=== PATIENT | female | born 1940 | race Caucasian/White ===

== ENCOUNTER → 2017-08-29 | Outpatient (CLI) | payer MEDICARE, OTHER ==
[~2017-08-29] MED LIST: ASPI81CH; Antivert12.5 MG PO; CELE200; CHOL10002; DIPATR PO; FOLI400; HYDSUL200; LEVSOD100 PO; LEVSOD150; METTREX2.5; MINERAL; NIAC500ER; OMEP20ER; Pred Forte1 ML RIGHTEYE; RALO60; SULF500; TELM80; VITAMIN; Valium5 MG PO
[2017-09-01 13:48] LABS: Stool Occult Blood Guaiac 1 Neg (Neg); Stool Occult Blood Guaiac 2 Neg (Neg)
[2017-09-01 13:49] LABS: Stool Occult Blood Guaiac 3 Neg (Neg)
== END | disposition home or self-care (01) ==
LOC: LAB SHORT 11:00 → LAB 11:00 → LAB FUT 08-25 11:25
PROVIDERS: Internal Medicine
DX: D64.9 Anemia, unspecified (principal)
CPT/HCPCS: 82272; 82274

== ENCOUNTER → 2019-04-01 | Outpatient (CLI) | payer MEDICARE, OTHER ==
[2019-04-03 14:09] LABS: Stool Occult Blood Guaiac 1 Neg (Neg)
[2019-04-03 14:10] LABS: Stool Occult Blood Guaiac 2 Neg (Neg); Stool Occult Blood Guaiac 3 Neg (Neg)
== END | disposition home or self-care (01) ==
LOC: LAB 07:09 → LAB SHORT 07:09 → LAB FUT 02-07 07:15
PROVIDERS: Internal Medicine
DX: D64.9 Anemia, unspecified (principal)
CPT/HCPCS: 82270

== ENCOUNTER 2021-05-08 19:02 | Inpatient (IN) | payer MEDICARE, OTHER ==
[~2021-05-08] VITALS: Ht 152.4 cm; Wt 63.4 kg
[~2021-05-08 19:02] MED LIST changes: -EUTHYROX125 MCG PO; -METHOTREXATE2.5 M1 PO; -NIAC500ER PO; -SYNTHROID125 MC1 PO; -TELMISARTAN80 MG PO
[2021-05-08 19:49] LABS: BASOPHILS ABSOLUTE AUTO 0.06 K/mm3 (0.00-0.23); BASOPHILS PERCENT AUTO 0 % (0-2); EOSINOPHILS PERCENT AUTO 0 % (0-6); IMMATURE GRAN ABSOLUTE AUTO 0.05 K/mm3 (0.00-0.10); IMMATURE GRAN PERCENT AUTO 0 % (0-1); LYMPHOCYTES ABSOLUTE AUTO 1.65 K/mm3 (0.84-5.20); LYMPHOCYTES PERCENT AUTO 11 % (21-46); MONOCYTES ABSOLUTE AUTO 0.67 K/mm3 (0.16-1.47); MONOCYTES PERCENT AUTO 4 % (4-13); Mean Corpuscular HGB Conc 32.6 g/dL (31.5-36.5); Mean Corpuscular Volume 86 fL (80-100); Mean Platelet Volume 10.9 fL (9.1-12.4); NEUTROPHILS ABSOLUTE AUTO 12.95 K/mm3 (1.96-9.15); NEUTROPHILS PERCENT AUTO 84 % (41-73); Platelet Count 247 K/mm3 (150-400); RDW Coefficient Variation 15.4 % (11.7-14.2); RDW Standard Deviation 46.6 fL (35.1-46.3); Red Blood Cell Count 5.36 M/mm3 (3.80-5.20); White Blood Cell Count 15.38 K/mm3 (4.00-11.30)
[2021-05-08 20:05] LABS: Alanine Aminotransfer (ALT/SGP 25 U/L (12-78); Albumin, Blood 3.8 g/dL (3.4-5.0); Alk Phos 75 U/L (50-136); Anion Gap 8 mmol/L (6-16); Aspartate Aminotrans (AST/SGOT 25 U/L (12-37); Bilirubin, Total 0.7 mg/dL (0.1-1.0); Blood Urea Nitrogen 12 mg/dL (8-24); Bun/Creatinine Ratio 17.9 (12.0-20.0); CO2, Blood 23 mmol/L (21-32); Calcium, Blood 9.8 mg/dL (8.5-10.1); Chloride, Blood 100 mmol/L (98-108); Creatinine, Blood 0.67 mg/dL (0.40-1.00); Globulin, Blood 3.9 g/dL (2.2-4.0); Glomerular Filtration Rate >60 (60-); Glucose, Blood 140 mg/dL (70-99); Potassium, Blood 4.2 mmol/L (3.5-5.5); Sodium, Blood 131 mmol/L (136-145); Total Protein, Blood 7.7 g/dL (6.4-8.2)
[2021-05-08] MEDS ORDERED: METHOTREXATE2.5 M1 PO (21:40)
[2021-05-08] MEDS ORDERED: SYNTHROID125 MC1 PO (21:40)
[2021-05-08] MEDS ORDERED: TELMISARTAN80 MG PO (21:40)
[2021-05-08] MEDS ORDERED: HYDSUL200 PO (21:49)
[2021-05-08] MEDS ORDERED: EUTHYROX125 MCG PO (21:50)
[2021-05-08] MEDS ORDERED: NIAC500ER PO (21:50)
[2021-05-08 23:19] LABS: International Normalized Ratio 1.05; Prothrombin Time Results 11.3 Sec (9.7-11.5)
[2021-05-08 23:22] LABS: SARS-Cov-2 (COVID-19) PCR, MMC NEGATIVE (NEGATIVE)
[2021-05-08 23:26] LABS: Phosphorus, Blood 4.2 mg/dL (2.5-4.9); Thyroid Stimulating Hormone 0.916 uIU/mL (0.360-4.800)
--- NOTE | 2021-05-09 04:42 | NUR ---
END OF SHIFT REPORT: PT WAKES UP CONFUSED, NOT KNOWING WHERE SHE IS. ATTEMPTING TO GET OUT OF BED WITHOUT HELP. NON VIOLENT RESTRAINTS ORDER OBTAINED AND INITIATED. PT GIVEN SOME SWABS TO HELP WITH MOUTH DRYNESS. NG TUBE INTACT AND CONNECTED TO LOW INTERMITENT SUCTION. APPROXIMATELY 50ML OF GREEN OUTPUT AT THIS TIME. PT STABLE IS IS RESTING COMFORTABLY.
[2021-05-09 05:41] LABS: BASOPHILS ABSOLUTE AUTO 0.04 K/mm3 (0.00-0.23); BASOPHILS PERCENT AUTO 0 % (0-2); EOSINOPHILS ABSOLUTE AUTO 0.07 K/mm3 (0.00-0.68); EOSINOPHILS PERCENT AUTO 1 % (0-6); Hematocrit 39.7 % (33.0-51.0); Hemoglobin 12.6 g/dL (11.5-16.0); IMMATURE GRAN ABSOLUTE AUTO 0.02 K/mm3 (0.00-0.10); IMMATURE GRAN PERCENT AUTO 0 % (0-1); LYMPHOCYTES ABSOLUTE AUTO 2.61 K/mm3 (0.84-5.20); LYMPHOCYTES PERCENT AUTO 26 % (21-46); MONOCYTES ABSOLUTE AUTO 0.98 K/mm3 (0.16-1.47); MONOCYTES PERCENT AUTO 10 % (4-13); Mean Corpuscular HGB 27.5 pg (26.0-34.0); Mean Corpuscular HGB Conc 31.7 g/dL (31.5-36.5); Mean Corpuscular Volume 87 fL (80-100); Mean Platelet Volume 11.4 fL (9.1-12.4); NEUTROPHILS ABSOLUTE AUTO 6.21 K/mm3 (1.96-9.15); NEUTROPHILS PERCENT AUTO 63 % (41-73); Platelet Count 171 K/mm3 (150-400); RDW Coefficient Variation 15.3 % (11.7-14.2); RDW Standard Deviation 47.5 fL (35.1-46.3); Red Blood Cell Count 4.58 M/mm3 (3.80-5.20); White Blood Cell Count 9.93 K/mm3 (4.00-11.30)
--- NOTE | 2021-05-09 06:03 | NUR ---
0520: PT CALLS NEEDING TO USE THE RESTROOM. NURSE PLEASURE CRAFT SAILOR REPORTS THAT PT PULLED OUT NG TUBE. THIS NURSE ASSES PT AND PT IS STABLE AND REPORTING NO SIGNS OF NAUSEA NOR ABD PAIN. PT HAS HAD TWO SMALL BOWEL MOVEMENTS OVER NIGHT. HOSPITALIST NOTIFIED. LEAVE NG TUBE OUT FOR NOW AND LEAVE PT NPO, PER HOSPITALIST.
[2021-05-09 06:09] LABS: Alanine Aminotransfer (ALT/SGP 18 U/L (12-78); Albumin, Blood 2.8 g/dL (3.4-5.0); Albumin/Globulin Ratio 0.9 (0.8-1.8); Alk Phos 50 U/L (50-136); Anion Gap 6 mmol/L (6-16); Aspartate Aminotrans (AST/SGOT 18 U/L (12-37); Bilirubin, Total 0.4 mg/dL (0.1-1.0); Blood Urea Nitrogen 10 mg/dL (8-24); Bun/Creatinine Ratio 16.2 (12.0-20.0); CO2, Blood 24 mmol/L (21-32); Chloride, Blood 109 mmol/L (98-108); Creatinine, Blood 0.62 mg/dL (0.40-1.00); Globulin, Blood 3.1 g/dL (2.2-4.0); Glomerular Filtration Rate >60 (60-); Glucose, Blood 96 mg/dL (70-99); Potassium, Blood 3.7 mmol/L (3.5-5.5); Sodium, Blood 139 mmol/L (136-145); Total Protein, Blood 5.9 g/dL (6.4-8.2)
[2021-05-09 06:12] LABS: Calcium, Blood 7.2 mg/dL (8.5-10.1)
--- NOTE | 2021-05-09 18:17 | NUR ---
SHIFT SUMMMARY PT IS AO AND PLEASANT. PT UPGRADED TO CLEAR LIQUID DIET TODAY AND IS TOLERATING IT WELL. PT DENIES PAIN, N/V, SOB. PT IS ONE ASSIST TO BCC. NO PROCEDURES DONE THIS SHIFT. PT IS IN BED, CALL LIGHT IN REACH, LOW POSITION.
--- NOTE | 2021-05-10 03:56 | NUR ---
END OF SHIF REPORT: PT REPORTS NO NAUSEA NOR PAIN OVERNIGHT. NO EPISODES OF CONFUSION OVERNIGHT. PT RESTING COMFORTABLY AT THIS TIME.
[2021-05-10 05:27] LABS: Hematocrit 36.9 % (33.0-51.0); Hemoglobin 11.6 g/dL (11.5-16.0); Mean Corpuscular HGB 28.1 pg (26.0-34.0); Mean Corpuscular HGB Conc 31.4 g/dL (31.5-36.5); Mean Corpuscular Volume 89 fL (80-100); Mean Platelet Volume 11.6 fL (9.1-12.4); Platelet Count 144 K/mm3 (150-400); RDW Coefficient Variation 15.2 % (11.7-14.2); RDW Standard Deviation 49.4 fL (35.1-46.3); Red Blood Cell Count 4.13 M/mm3 (3.80-5.20); White Blood Cell Count 6.83 K/mm3 (4.00-11.30)
[2021-05-10 05:55] LABS: Anion Gap 3 mmol/L (6-16); Blood Urea Nitrogen 4 mg/dL (8-24); Bun/Creatinine Ratio 7.7 (12.0-20.0); CO2, Blood 26 mmol/L (21-32); Calcium, Blood 7.6 mg/dL (8.5-10.1); Chloride, Blood 111 mmol/L (98-108); Creatinine, Blood 0.52 mg/dL (0.40-1.00); Glomerular Filtration Rate >60 (60-); Glucose, Blood 92 mg/dL (70-99); Potassium, Blood 3.2 mmol/L (3.5-5.5); Sodium, Blood 140 mmol/L (136-145)
[2021-05-10 06:27] LABS: BASOPHILS PERCENT MAN 0 % (0-2); EOSINOPHILS ABSOLUTE MAN 0.27 K/mm3 (0.00-0.68); EOSINOPHILS PERCENT MAN 4 % (0-6); LYMPHOCYTES ABSOLUTE MAN 1.77 K/mm3 (0.84-5.20); LYMPHOCYTES PERCENT MAN 26 % (21-46); MONOCYTES ABSOLUTE MAN 0.81 K/mm3 (0.16-1.47); MONOCYTES PERCENT MAN 12 % (4-13); NEUTROPHILS ABSOLUTE MAN 3.96 K/mm3 (1.96-9.15); SEG NEUTROPHILS PERCENT MAN 58 % (41-73); TOTAL CELLS COUNTED 100
--- NOTE | 2021-05-10 13:35 | NUR ---
DISCHARGE NOTE PT IS AOX4. IV REMOVED PER DOCUMENTATION. THIS RN REVIEWED DC INSTRUCTIONS AND MEDICATIONS WITH PT WHO VERBALIZED UNDERSTANDING. PT DRESSED SELF IN HOME CLOTHING. BELONGINGS GATHERED FROM ROOM. PT ASSISTED INTO WHEELCHAIR AND LEFT TO PRIVATE VEHICLE WITH BELONGINGS PRESENT.
== END 2021-05-10 13:35 | disposition home or self-care (01) | DRG 390 ==
LOC: ER 19:02 → MEDS 22:45
PROVIDERS: Nurse Practitioner Acute Care; Physician Assistant; Surgery; ADMIT Hospitalist
DX: K56.609 Unspecified intestinal obstruction, unspecified as to partial versus complete obstruction (principal); Z20.822 Contact with and (suspected) exposure to COVID-19; K21.9 Gastro-esophageal reflux disease without esophagitis; M06.9 Rheumatoid arthritis, unspecified; E03.9 Hypothyroidism, unspecified; I10 Essential (primary) hypertension; M81.0 Age-related osteoporosis without current pathological fracture; D72.829 Elevated white blood cell count, unspecified; Z88.0 Allergy status to penicillin; Z88.8 Allergy status to other drugs, medicaments and biological substances; Z91.018 Allergy to other foods; Z79.82 Long term (current) use of aspirin; Z79.52 Long term (current) use of systemic steroids; Z79.899 Other long term (current) drug therapy; Z87.891 Personal history of nicotine dependence; Z90.710 Acquired absence of both cervix and uterus
CPT/HCPCS: 36415; 74019; 80048; 80053; 82150; 83605; 84100; 84145; 84443; 85007; 85025; 85027; 85610; 85730; 86850; 86900; 86901; 96361; 96374; 99284-25; A9270; J1644; J2405; J7030; J7042; U0004

== ENCOUNTER → 2021-05-08 | Outpatient (CLI) | payer MEDICARE, OTHER ==
[~2021-05-08] MED LIST changes: -CHOL10002; +EUTHYROX125 MCG PO; +FOLI1 PO; -FOLI400; -HYDSUL200; +HYDSUL200 PO; +METHOTREXATE2.5 M1 PO; +NIAC500ER PO; -OMEP20ER; +OMEP20ER PO; +SYNTHROID125 MC1 PO; +TELMISARTAN80 MG PO; +VITAMIN D31000 UNI1 PO
[2021-05-08 15:25] LABS: BASOPHILS ABSOLUTE AUTO 0.08 K/mm3 (0.00-0.23); BASOPHILS PERCENT AUTO 1 % (0-2); EOSINOPHILS ABSOLUTE AUTO 0.02 K/mm3 (0.00-0.68); EOSINOPHILS PERCENT AUTO 0 % (0-6); Hematocrit 48.1 % (33.0-51.0); Hemoglobin 15.5 g/dL (11.5-16.0); IMMATURE GRAN ABSOLUTE AUTO 0.07 K/mm3 (0.00-0.10); IMMATURE GRAN PERCENT AUTO 0 % (0-1); LYMPHOCYTES ABSOLUTE AUTO 1.37 K/mm3 (0.84-5.20); LYMPHOCYTES PERCENT AUTO 8 % (21-46); MONOCYTES ABSOLUTE AUTO 0.84 K/mm3 (0.16-1.47); MONOCYTES PERCENT AUTO 5 % (4-13); Mean Corpuscular HGB 27.7 pg (26.0-34.0); Mean Corpuscular HGB Conc 32.2 g/dL (31.5-36.5); Mean Corpuscular Volume 86 fL (80-100); Mean Platelet Volume 10.7 fL (9.1-12.4); NEUTROPHILS ABSOLUTE AUTO 14.67 K/mm3 (1.96-9.15); NEUTROPHILS PERCENT AUTO 86 % (41-73); Platelet Count 232 K/mm3 (150-400); RDW Coefficient Variation 15.5 % (11.7-14.2); RDW Standard Deviation 46.8 fL (35.1-46.3); Red Blood Cell Count 5.59 M/mm3 (3.80-5.20); White Blood Cell Count 17.05 K/mm3 (4.00-11.30)
[2021-05-08 15:36] LABS: Alanine Aminotransfer (ALT/SGP 21 U/L (12-78); Albumin, Blood 4.2 g/dL (3.4-5.0); Alk Phos 81 U/L (40-126); Anion Gap 13 mmol/L (6-16); Aspartate Aminotrans (AST/SGOT 24 U/L (12-37); Bilirubin, Total 0.7 mg/dL (0.1-1.0); Blood Urea Nitrogen 12 mg/dL (8-24); Bun/Creatinine Ratio 14.6 (12.0-20.0); CO2, Blood 25 mmol/L (21-32); Calcium, Blood 10.3 mg/dL (8.5-10.1); Chloride, Blood 97 mmol/L (98-108); Creatinine, Blood 0.82 mg/dL (0.40-1.00); Globulin, Blood 4.2 g/dL (2.2-4.0); Glomerular Filtration Rate >60 (60-); Glucose, Blood 150 mg/dL (70-99); Potassium, Blood 4.2 mmol/L (3.5-5.5); Sodium, Blood 135 mmol/L (136-145); Total Protein, Blood 8.4 g/dL (6.4-8.2)
== END | disposition home or self-care (01) ==
LOC: LAB SHORT 15:21 → LAB 15:21
PROVIDERS: Physician Assistant
DX: R11.2 Nausea with vomiting, unspecified (principal); R10.9 Unspecified abdominal pain
CPT/HCPCS: 80053; 83690; 85025

== ENCOUNTER → 2022-06-05 | Outpatient (CLI) | payer MEDICARE, OTHER ==
[~2022-06-05] MED LIST changes: +EUTHYROX125 MCG PO; +METHOTREXATE2.5 M1 PO; +NIAC500ER PO; +SYNTHROID125 MC1 PO; +TELMISARTAN80 MG PO
[2022-06-05 13:44] LABS: Source, Urine Clean Catch
[2022-06-05 16:01] LABS: Appearance, Urine Hazy (Clear); Bilirubin, Urine Neg (Neg); Blood, Urine 1+ (Neg); Color, Urine Yellow (P-Yellow); Glucose Qualitative, Urine Neg (Neg); Ketones, Urine Neg (Neg); Leukocyte Esterase, Urine 3+ (Neg); Nitrite, Urine Pos (Neg); Protein, Urine Neg (Neg); Specific Gravity, Urine 1.015 (1.003-1.022); Urobilinogen, Urine NORM (Normal)
[2022-06-05 16:37] LABS: Bacteria Many /hpf; Red Blood Cells, Urine 0-2 /hpf (0-2); Squamous Epithelial Cells Few /hpf (Few); White Blood Cells, Urine TNTC /hpf (0-5)
[2022-06-05 16:38] LABS: Amorphous Light (0-Heavy); Mucus Light (0-Heavy); Transitional Epithelial Cells Rare /hpf (0-Rare)
== END | disposition home or self-care (01) ==
LOC: LAB SHORT 13:43 → LAB 13:43
PROVIDERS: Internal Medicine
DX: R82.90 Unspecified abnormal findings in urine (principal)
CPT/HCPCS: 81001; 87077; 87086; 87186

== ENCOUNTER → 2022-06-17 | Outpatient (CLI) | payer MEDICARE, OTHER ==
[2022-06-17 09:11] LABS: Source, Urine Clean Catch
[2022-06-17 10:22] LABS: Appearance, Urine Clear (Clear); Bilirubin, Urine Neg (Neg); Blood, Urine Neg (Neg); Color, Urine Yellow (P-Yellow); Glucose Qualitative, Urine Neg (Neg); Ketones, Urine Neg (Neg); Leukocyte Esterase, Urine 1+ (Neg); Nitrite, Urine Neg (Neg); Protein, Urine Neg (Neg); Urobilinogen, Urine NORM (Normal)
[2022-06-17 10:42] LABS: Red Blood Cells, Urine 0-2 /hpf (0-2); White Blood Cells, Urine 0-2 /hpf (0-5)
[2022-06-17 10:43] LABS: Bacteria Rare /hpf; Squamous Epithelial Cells Rare /hpf (Few); Transitional Epithelial Cells Rare /hpf (0-Rare)
== END ==
LOC: LAB SHORT 09:10 → LAB 09:10 → EDSTATUS 15:37
PROVIDERS: Internal Medicine
DX: N39.0 Urinary tract infection, site not specified (principal)
CPT/HCPCS: 81001; 87077; 87086; 87186

== ENCOUNTER → 2022-07-21 | Outpatient (CLI) | payer MEDICARE, OTHER ==
[2022-07-21 10:26] LABS: Source, Urine Clean Catch
[2022-07-21 11:35] LABS: Appearance, Urine Hazy (Clear); Bilirubin, Urine Neg (Neg); Blood, Urine 1+ (Neg); Color, Urine Yellow (P-Yellow); Glucose Qualitative, Urine Neg (Neg); Ketones, Urine Neg (Neg); Leukocyte Esterase, Urine 3+ (Neg); Nitrite, Urine Neg (Neg); Protein, Urine Neg (Neg); Urobilinogen, Urine NORM (Normal)
[2022-07-21 12:22] LABS: Bacteria Few /hpf; Squamous Epithelial Cells Not Seen /hpf (Few)
== END | disposition home or self-care (01) ==
LOC: LAB 10:23 → LAB SHORT 10:23 → LAB FUT 06-19 17:15
PROVIDERS: Internal Medicine
DX: N39.0 Urinary tract infection, site not specified (principal)
CPT/HCPCS: 81001; 87077; 87086; 87186

== ENCOUNTER → 2022-10-16 | Outpatient (CLI) | payer MEDICARE, OTHER ==
[2022-10-16 09:12] LABS: Source, Urine Clean Catch
[2022-10-16 10:15] LABS: Appearance, Urine Hazy (Clear); Bilirubin, Urine Neg (Neg); Blood, Urine Neg (Neg); Color, Urine Yellow (P-Yellow); Glucose Qualitative, Urine Neg (Neg); Ketones, Urine Neg (Neg); Leukocyte Esterase, Urine 3+ (Neg); Nitrite, Urine Neg (Neg); Protein, Urine 1+ (Neg); Urobilinogen, Urine NORM (Normal)
[2022-10-16 11:35] LABS: White Blood Cells, Urine 50-100 /hpf (0-5)
[2022-10-16 11:36] LABS: Bacteria Few /hpf; Squamous Epithelial Cells Few /hpf (Few)
== END | disposition home or self-care (01) ==
LOC: LAB 09:10 → LAB SHORT 09:10 → LAB FUT 10-15 15:20 → EDSTATUS 10-15 15:20
PROVIDERS: Internal Medicine
DX: R82.90 Unspecified abnormal findings in urine (principal)
CPT/HCPCS: 81001; 87077; 87086; 87186

== ENCOUNTER 2023-04-13 10:36 | Inpatient (IN) | payer MEDICARE, OTHER ==
[~2023-04-13] VITALS: Ht 152.4 cm; Wt 56.7 kg
[~2023-04-13 10:36] MED LIST changes: +ONDA4ODT MM; +Premarin 225 MG/5 ML
[2023-04-13 11:17] LABS: BASOPHILS PERCENT AUTO 1 % (0-2); EOSINOPHILS ABSOLUTE AUTO 0.24 K/mm3 (0.00-0.68); EOSINOPHILS PERCENT AUTO 2 % (0-6); Hematocrit 44.8 % (33.0-51.0); Hemoglobin 14.5 g/dL (11.5-16.0); IMMATURE GRAN ABSOLUTE AUTO 0.02 K/mm3 (0.00-0.10); IMMATURE GRAN PERCENT AUTO 0 % (0-1); LYMPHOCYTES ABSOLUTE AUTO 1.72 K/mm3 (0.84-5.20); LYMPHOCYTES PERCENT AUTO 13 % (21-46); MONOCYTES ABSOLUTE AUTO 0.87 K/mm3 (0.16-1.47); MONOCYTES PERCENT AUTO 6 % (4-13); Mean Corpuscular HGB 27.6 pg (26.0-34.0); Mean Corpuscular HGB Conc 32.4 g/dL (31.5-36.5); Mean Corpuscular Volume 85 fL (80-100); Mean Platelet Volume 10.5 fL (9.1-12.4); NEUTROPHILS ABSOLUTE AUTO 10.68 K/mm3 (1.96-9.15); NEUTROPHILS PERCENT AUTO 78 % (41-73); Platelet Count 352 K/mm3 (150-400); RDW Standard Deviation 45.3 fL (35.1-46.3); Red Blood Cell Count 5.25 M/mm3 (3.80-5.20); White Blood Cell Count 13.63 K/mm3 (4.00-11.30)
[2023-04-13 11:42] LABS: Albumin, Blood 3.9 g/dL (3.4-5.0); Albumin/Globulin Ratio 0.9 (0.8-1.8); Bilirubin, Total 0.8 mg/dL (0.1-1.0); Bun/Creatinine Ratio 13.4 (12.0-20.0); Calcium, Blood 10.2 mg/dL (8.5-10.1); Creatinine, Blood 0.6 mg/dL (0.40-1.00); Globulin, Blood 4.5 g/dL (2.2-4.0); Potassium, Blood 3.7 mmol/L (3.5-5.5); Total Protein, Blood 8.4 g/dL (6.4-8.2)
[2023-04-13 12:20] LABS: Source, Urine Clean Catch
[2023-04-13 12:27] LABS: Appearance, Urine Hazy (Clear); Bilirubin, Urine Neg (Neg); Blood, Urine 1+ (Neg); Glucose Qualitative, Urine Neg (Neg); Ketones, Urine Neg (Neg); Leukocyte Esterase, Urine 3+ (Neg); Nitrite, Urine Neg (Neg); Protein, Urine Neg (Neg); Urobilinogen, Urine NORM (Normal)
[2023-04-13 12:49] LABS: Color, Urine Pale Yellow (P-Yellow)
[2023-04-13 12:51] LABS: Bacteria Many /hpf; Squamous Epithelial Cells Mod /hpf (Few); White Blood Cells, Urine 25-50 /hpf (0-5)
[2023-04-13 16:58] VITALS: BP 166/103
--- NOTE | 2023-04-13 18:27 | NUR ---
ARRIVAL: PT ARRIVED TO ROOM AT 1645 VIA GURNEY. PT ABLE TO INDEPENDENTLY TRANSFER TO BED. NG TUBE PLACED IN ER. INTERMITTENT SUCTION IN PLACE GREEN/YELLOW IN COLOR. PT C/O INTERMITTENT ABD PAIN. PAIN WITH PALPATION ON MID TO LEFT LOWER EXTREMITY. PT HAS BUNIONS ON FEET AND DRY SKIN. NO OTHER SKIN ISSUES NOTED. IGNITION SOURCES DISCUSSED WITH PT AND SON. PT HAS NOT SMOKED SINCE 1996 AND DOES NOT HAVE CIGARETTES, LIGHTERS, OR MATCHES. NS RUNNING IN LAC @100/HR. CALL LIGHT IN REACH. BED IN LOWEST POSITION. WILL CONTINUE TO MONITOR.
[2023-04-13 19:25] VITALS: BP 148/89
[2023-04-14 04:07] VITALS: BP 130/66
[2023-04-14 05:49] LABS: BASOPHILS ABSOLUTE AUTO 0.09 K/mm3 (0.00-0.23); BASOPHILS PERCENT AUTO 1 % (0-2); EOSINOPHILS ABSOLUTE AUTO 0.41 K/mm3 (0.00-0.68); EOSINOPHILS PERCENT AUTO 4 % (0-6); Hematocrit 41.4 % (33.0-51.0); Hemoglobin 13.3 g/dL (11.5-16.0); IMMATURE GRAN ABSOLUTE AUTO 0.02 K/mm3 (0.00-0.10); IMMATURE GRAN PERCENT AUTO 0 % (0-1); LYMPHOCYTES PERCENT AUTO 14 % (21-46); MONOCYTES PERCENT AUTO 9 % (4-13); Mean Corpuscular HGB 27.9 pg (26.0-34.0); Mean Corpuscular HGB Conc 32.1 g/dL (31.5-36.5); Mean Corpuscular Volume 87 fL (80-100); Mean Platelet Volume 10.7 fL (9.1-12.4); NEUTROPHILS ABSOLUTE AUTO 7.51 K/mm3 (1.96-9.15); NEUTROPHILS PERCENT AUTO 72 % (41-73); Platelet Count 269 K/mm3 (150-400); RDW Coefficient Variation 15.4 % (11.7-14.2); RDW Standard Deviation 47.8 fL (35.1-46.3); Red Blood Cell Count 4.77 M/mm3 (3.80-5.20); White Blood Cell Count 10.43 K/mm3 (4.00-11.30)
--- NOTE | 2023-04-14 05:55 | NUR ---
SHIFT SUMMARY: PATIENT A&OX4. CALM, PLEASANT AND COOPERATIVE c CARE. USES CALL LIGHT APPROPRIATELY AND ABLE TO MAKE NEEDS KNOWN. DENIES CP/PRESSURE, SOB, N/V AND GENERALIZED PAIN. NPO D/T GASTRIC OUTLET OBS. NG TUBE IN PLACED CONNECTED TO LOW INTERMITTENT SUCTION c MINIMAL GREENISH COLOR GASTRIC SECRETION. PATIENT HAD 4 MEDIUM LIQUID DARK GREENISH BROWN c SOME HARD SMALL MARBLE SIZE PELLETS BM THIS SHIFT. PATIENT INDEPENDENT TO BSC T/O SHIFT. PIV TO R WRIST INFUSING NS AT 100 MLS/HR. VITAL SIGNS REVIEWED. CALL LIGHT IN REACH. PATIENT EDUCATED ON NON SMOKING POLICY, RISK OF INJURY, AND IGNITION SOURCES WHEN O2 IN USE. PATIENT DENIES SMOKING AND VERBALIZED UNDERSTANDING.
[2023-04-14 06:33] LABS: Bun/Creatinine Ratio 14.4 (12.0-20.0); Calcium, Blood 8.2 mg/dL (8.5-10.1); Creatinine, Blood 0.56 mg/dL (0.40-1.00); Potassium, Blood 3.5 mmol/L (3.5-5.5)
--- NOTE | 2023-04-14 08:58 | NUR ---
to imaging for a small bowel follow through via gurney.
--- NOTE | 2023-04-14 09:42 | NUR ---
LATE ENTRY 0930: PT RETURNED FROM IMAGING VIA GURNEY. ORACLE DATA WAREHOUSE DEVELOPER INFORMED RN THAT PT WILL BE PICKED UP AGAIN AT 0950 TO RETURN TO IMAGING FOR FOLLOW UP IMAGING.
[2023-04-14 09:43] VITALS: BP 121/68
--- NOTE | 2023-04-14 13:47 | NUR ---
NGT CAROLINE'D. PER DR. WATSON, ORDERS RECEIVED TO DC NGT & START DIET & ADV MRAIELENA. STARTED PT ON SIPS OF WATER. EDUCATED PT ON SLOWLY ADV DIET. PT IS IN AGREEMENT.
[2023-04-14 16:33] VITALS: BP 162/92
--- NOTE | 2023-04-14 18:23 | NUR ---
SHIFT SUMMARY A&O X 4. VSS. NGT TO LOW INT SXN, WITH MINIMAL GREEN DRNG IN CANISTER. MD IN TO SEE PT, ORDERS RECEIVED FOR SMALL BOWEL FOLLOW THROUGH TODAY. EXAM DONE WHICH SHOWED NO BOWEL OBSTRUCTION. ORDERS RECEIVED TO DC NGT AND BEGIN CLR LIQS & TO ADV DIET MARIELENA. PROVIDED PT WITH WATER, BROTH & JELLO. MARIELENA WELL. IS INDEPENDENT FOR BSC USE. PT HAS HAD FREQ LOOSE BM'S AND IS URINATING WELL. DENIES N/V & PAIN. IS PLEASANT & COOPERATIVE WITH ALL CARE.
[2023-04-14 19:57] VITALS: BP 114/60
--- NOTE | 2023-04-15 03:48 | NUR ---
SHIFT SUMMARY. SHIFT HAS BEEN MOSTLY UNREMARKABLE. PT IS AOX4, PLEASANT, COOPERATIVE WITH CARE. HAS SLEPT THROUGH MUCH OF SHIFT BUT CALLS APPROPRIATELY FOR ASSISTANCE TO RESTROOM WHEN NEED ARISES. PT VOICED DESIRE TO BE FULL CODE RATHER THAN DNR EARLY IN SHIFT. CALLED HOSPITALIST EDNA AND SWITCHED CODE STATUS TO FULL CODE. NO COMPLAINTS OF PAIN. BED LOCKED IN LOWEST POSITION. CALL LIGHT LEFT WITHIN REACH.
[2023-04-15 04:36] VITALS: BP 135/61
[2023-04-15 06:01] LABS: BASOPHILS ABSOLUTE AUTO 0.04 K/mm3 (0.00-0.23); BASOPHILS PERCENT AUTO 0 % (0-2); EOSINOPHILS ABSOLUTE AUTO 0.25 K/mm3 (0.00-0.68); EOSINOPHILS PERCENT AUTO 2 % (0-6); Hematocrit 36.7 % (33.0-51.0); Hemoglobin 11.6 g/dL (11.5-16.0); IMMATURE GRAN ABSOLUTE AUTO 0.05 K/mm3 (0.00-0.10); IMMATURE GRAN PERCENT AUTO 1 % (0-1); LYMPHOCYTES ABSOLUTE AUTO 1.74 K/mm3 (0.84-5.20); LYMPHOCYTES PERCENT AUTO 16 % (21-46); MONOCYTES ABSOLUTE AUTO 0.96 K/mm3 (0.16-1.47); MONOCYTES PERCENT AUTO 9 % (4-13); Mean Corpuscular HGB 27.6 pg (26.0-34.0); Mean Corpuscular HGB Conc 31.6 g/dL (31.5-36.5); Mean Corpuscular Volume 87 fL (80-100); Mean Platelet Volume 10.8 fL (9.1-12.4); NEUTROPHILS ABSOLUTE AUTO 7.56 K/mm3 (1.96-9.15); NEUTROPHILS PERCENT AUTO 71 % (41-73); Platelet Count 239 K/mm3 (150-400); RDW Coefficient Variation 15.5 % (11.7-14.2); RDW Standard Deviation 48.6 fL (35.1-46.3); Red Blood Cell Count 4.21 M/mm3 (3.80-5.20)
[2023-04-15 06:18] LABS: Albumin, Blood 2.8 g/dL (3.4-5.0); Anion Gap 6 mmol/L (6-16); Blood Urea Nitrogen 8 mg/dL (8-24); Bun/Creatinine Ratio 15.4 (12.0-20.0); CO2, Blood 23 mmol/L (21-32); Calcium, Blood 7.6 mg/dL (8.5-10.1); Chloride, Blood 112 mmol/L (98-108); Creatinine, Blood 0.52 mg/dL (0.40-1.00); Glomerular Filtration Rate 92 (60-); Glucose, Blood 88 mg/dL (70-99); Phosphorus, Blood 1.6 mg/dL (2.5-4.9); Sodium, Blood 141 mmol/L (136-145)
[2023-04-15 07:51] VITALS: BP 137/62
== END 2023-04-15 11:21 | disposition home or self-care (01) | DRG 381 ==
LOC: ER 10:36 → MEDS 14:05 → ENPENDDIS 04-15 09:16 → MEDS 04-15 11:21
PROVIDERS: Emergency Medicine; ADMIT Family Medicine
PROC: 0D9670Z Drainage of Stomach with Drainage Device, Via Natural or Artificial Opening (ICD-10-PCS; principal; 2023-04-14)
PROC: BD13ZZZ Fluoroscopy of Small Bowel (ICD-10-PCS; 2023-04-14)
DX: K31.1 Adult hypertrophic pyloric stenosis (principal); E87.1 Hypo-osmolality and hyponatremia; K44.0 Diaphragmatic hernia with obstruction, without gangrene; D72.829 Elevated white blood cell count, unspecified; E87.6 Hypokalemia; E83.39 Other disorders of phosphorus metabolism; Z66 Do not resuscitate; E03.9 Hypothyroidism, unspecified; M06.9 Rheumatoid arthritis, unspecified; K21.9 Gastro-esophageal reflux disease without esophagitis; I10 Essential (primary) hypertension; Z88.0 Allergy status to penicillin; Z88.8 Allergy status to other drugs, medicaments and biological substances; Z91.018 Allergy to other foods; Z79.899 Other long term (current) drug therapy; Z90.710 Acquired absence of both cervix and uterus; Z98.42 Cataract extraction status, left eye; Z98.41 Cataract extraction status, right eye; Z98.890 Other specified postprocedural states; Z94.7 Corneal transplant status; Z87.891 Personal history of nicotine dependence
CPT/HCPCS: 36415; 74177; 74250; 80048; 80053; 80069; 81001; 83605; 83690; 85025; 87086; 87186; 99285-25; A9270; C9113; J1650; J7030; Q9967

== ENCOUNTER → 2023-05-06 | Outpatient (CLI) | payer MEDICARE, OTHER ==
[2023-05-06 07:36] LABS: Source, Urine Clean Catch
[2023-05-06 10:04] LABS: Appearance, Urine Clear (Clear); Bilirubin, Urine Neg (Neg); Blood, Urine Neg (Neg); Color, Urine Yellow (P-Yellow); Glucose Qualitative, Urine Neg (Neg); Ketones, Urine Neg (Neg); Leukocyte Esterase, Urine 2+ (Neg); Nitrite, Urine Neg (Neg); Protein, Urine Neg (Neg); Urobilinogen, Urine NORM (Normal)
[2023-05-06 10:16] LABS: Bacteria Few /hpf; Red Blood Cells, Urine 0-2 /hpf (0-2); Squamous Epithelial Cells Mod /hpf (Few); Transitional Epithelial Cells Few /hpf (0-Rare)
[2023-05-06 10:17] LABS: Amorphous Light (0-Heavy)
== END | disposition home or self-care (01) ==
LOC: LAB SHORT 07:35 → LAB 07:35 → LAB FUT 05-04 15:30 → EDSTATUS 05-04 15:30
PROVIDERS: Internal Medicine
DX: R82.90 Unspecified abnormal findings in urine (principal)
CPT/HCPCS: 81001; 87086; 87147

== ENCOUNTER → 2023-05-10 | Outpatient (CLI) | payer MEDICARE, OTHER ==
[2023-05-10 07:34] LABS: Source, Urine Clean Catch
[2023-05-10 10:22] LABS: Appearance, Urine Clear (Clear); Bilirubin, Urine Neg (Neg); Blood, Urine Neg (Neg); Color, Urine Yellow (P-Yellow); Glucose Qualitative, Urine Neg (Neg); Ketones, Urine Neg (Neg); Leukocyte Esterase, Urine 3+ (Neg); Nitrite, Urine Neg (Neg); Protein, Urine Neg (Neg); Specific Gravity, Urine 1.005 (1.003-1.022); Urobilinogen, Urine NORM (Normal)
[2023-05-10 10:54] LABS: White Blood Cells, Urine 25-50 /hpf (0-5)
[2023-05-10 10:56] LABS: Bacteria Mod /hpf; Red Blood Cells, Urine 0-2 /hpf (0-2); Squamous Epithelial Cells Many /hpf (Few)
[2023-05-10 10:59] LABS: Transitional Epithelial Cells Rare /hpf (0-Rare)
== END | disposition home or self-care (01) ==
LOC: LAB 07:33 → LAB SHORT 07:33 → LAB FUT 05-07 15:50
PROVIDERS: Internal Medicine
DX: R82.90 Unspecified abnormal findings in urine (principal)
CPT/HCPCS: 81001; 87086; 87147

== ENCOUNTER 2023-05-21 03:02 | Day surgery (SDC) | payer MEDICARE, OTHER ==
[2023-05-21 09:29] VITALS: BP 157/82
[2023-05-21] MEDS ORDERED: FAMO20 PO (09:57)
[2023-05-21] MEDS ORDERED: NIAC500 PO (09:59)
[2023-05-21] MEDS ORDERED: HYDSUL200 PO (10:00)
[2023-05-21] MEDS ORDERED: TELM80 PO (10:01)
[2023-05-21 10:28] LABS: Source, Urine Straight Cath
[2023-05-21 10:34] LABS: Appearance, Urine Clear (Clear); Bilirubin, Urine Neg (Neg); Blood, Urine Neg (Neg); Glucose Qualitative, Urine Neg (Neg); Ketones, Urine Neg (Neg); Leukocyte Esterase, Urine 3+ (Neg); Nitrite, Urine Neg (Neg); Protein, Urine Neg (Neg); Specific Gravity, Urine 1.005 (1.003-1.022); Urobilinogen, Urine NORM (Normal)
[2023-05-21 10:35] LABS: Color, Urine Pale Yellow (P-Yellow)
[2023-05-21 11:02] LABS: Red Blood Cells, Urine 0-2 /hpf (0-2)
[2023-05-21 11:03] LABS: Bacteria Many /hpf; Squamous Epithelial Cells Not Seen /hpf (Few); Transitional Epithelial Cells Rare /hpf (0-Rare)
== END 2023-05-21 09:42 | disposition home or self-care (01) ==
LOC: ATC 03:02
PROVIDERS: Internal Medicine
DX: R82.90 Unspecified abnormal findings in urine (principal); M06.9 Rheumatoid arthritis, unspecified; E83.39 Other disorders of phosphorus metabolism; E87.6 Hypokalemia; Z88.0 Allergy status to penicillin; Z88.2 Allergy status to sulfonamides
CPT/HCPCS: 81001; 87086; 87147; P9612

== ENCOUNTER 2023-12-18 21:45 | Inpatient (IN) | payer MEDICARE, OTHER ==
[~2023-12-18] VITALS: Ht 152.4 cm; Wt 56.4 kg
[~2023-12-18 21:45] MED LIST changes: +FAMO20 PO; +NIAC500 PO; +TELM80 PO
[2023-12-18 22:21] LABS: BASOPHILS ABSOLUTE AUTO 0.11 K/mm3 (0.00-0.23); BASOPHILS PERCENT AUTO 1 % (0-2); EOSINOPHILS ABSOLUTE AUTO 0.05 K/mm3 (0.00-0.68); EOSINOPHILS PERCENT AUTO 0 % (0-6); Hematocrit 47.9 % (33.0-51.0); Hemoglobin 14.7 g/dL (11.5-16.0); IMMATURE GRAN ABSOLUTE AUTO 0.08 K/mm3 (0.00-0.10); IMMATURE GRAN PERCENT AUTO 0 % (0-1); LYMPHOCYTES ABSOLUTE AUTO 1.29 K/mm3 (0.84-5.20); LYMPHOCYTES PERCENT AUTO 6 % (21-46); MONOCYTES ABSOLUTE AUTO 1.31 K/mm3 (0.16-1.47); MONOCYTES PERCENT AUTO 6 % (4-13); Mean Corpuscular HGB 26.4 pg (26.0-34.0); Mean Corpuscular HGB Conc 30.7 g/dL (31.5-36.5); Mean Corpuscular Volume 86 fL (80-100); Mean Platelet Volume 10.3 fL (9.1-12.4); NEUTROPHILS ABSOLUTE AUTO 18.88 K/mm3 (1.96-9.15); NEUTROPHILS PERCENT AUTO 87 % (41-73); Platelet Count 339 K/mm3 (150-400); RDW Coefficient Variation 16.7 % (11.7-14.2); RDW Standard Deviation 51.1 fL (35.1-46.3); Red Blood Cell Count 5.57 M/mm3 (3.80-5.20); White Blood Cell Count 21.72 K/mm3 (4.00-11.30)
[2023-12-18 22:46] LABS: Albumin/Globulin Ratio 0.9 (0.8-1.8); Bilirubin, Total 0.7 mg/dL (0.1-1.0); Bun/Creatinine Ratio 12.8 (12.0-20.0); Calcium, Blood 10.4 mg/dL (8.5-10.1); Creatinine, Blood 0.7 mg/dL (0.40-1.00); Globulin, Blood 4.7 g/dL (2.2-4.0); Potassium, Blood 4.1 mmol/L (3.5-5.5); Total Protein, Blood 8.7 g/dL (6.4-8.2)
[2023-12-18] MEDS ORDERED: Mag Hydrox/AL Hydrox/Simeth 30 ML UDC PO ONE (23:15)
[2023-12-19] VITALS (21 sets, daily range): BP systolic 126–1138; BP diastolic 68–103
[2023-12-19] MEDS ORDERED: NS 1,000 ML IV SCH ×3 (00:05→16:00)
[2023-12-19] MEDS ORDERED: CefTRIAXone Sodium 1,000 MG in NS 50 ML IV ONE (00:05)
[2023-12-19] MEDS ORDERED: Ondansetron HCl 2 MG / ML 2ML Vial IV PRN (02:10)
[2023-12-19] MEDS ORDERED: FentaNYL Citrate 50 MCG/ML 2 ML Injection IV PRN (02:10)
[2023-12-19] MEDS ORDERED: MetroNIDAZOLE 500MG/NS 100 ml 100 ML IV ONE (02:15)
[2023-12-19 02:20] LABS: Source, Urine Clean Catch
[2023-12-19 02:29] LABS: BASOPHILS ABSOLUTE AUTO 0.04 K/mm3 (0.00-0.23); BASOPHILS PERCENT AUTO 0 % (0-2); EOSINOPHILS ABSOLUTE AUTO 0.01 K/mm3 (0.00-0.68); EOSINOPHILS PERCENT AUTO 0 % (0-6); Hematocrit 42.3 % (33.0-51.0); Hemoglobin 13.1 g/dL (11.5-16.0); IMMATURE GRAN ABSOLUTE AUTO 0.03 K/mm3 (0.00-0.10); IMMATURE GRAN PERCENT AUTO 0 % (0-1); LYMPHOCYTES ABSOLUTE AUTO 0.72 K/mm3 (0.84-5.20); LYMPHOCYTES PERCENT AUTO 5 % (21-46); MONOCYTES ABSOLUTE AUTO 0.59 K/mm3 (0.16-1.47); MONOCYTES PERCENT AUTO 5 % (4-13); Mean Corpuscular HGB 26.7 pg (26.0-34.0); Mean Corpuscular Volume 86 fL (80-100); Mean Platelet Volume 10.1 fL (9.1-12.4); NEUTROPHILS ABSOLUTE AUTO 11.85 K/mm3 (1.96-9.15); NEUTROPHILS PERCENT AUTO 90 % (41-73); Platelet Count 239 K/mm3 (150-400); RDW Coefficient Variation 16.4 % (11.7-14.2); RDW Standard Deviation 50.5 fL (35.1-46.3); Red Blood Cell Count 4.91 M/mm3 (3.80-5.20); White Blood Cell Count 13.24 K/mm3 (4.00-11.30)
[2023-12-19 02:30] LABS: Bilirubin, Urine Neg (Neg); Blood, Urine 3+ (Neg); Glucose Qualitative, Urine Neg (Neg); Ketones, Urine Neg (Neg); Leukocyte Esterase, Urine 3+ (Neg); Nitrite, Urine Neg (Neg); Protein, Urine 2+ (Neg); Urobilinogen, Urine NORM (Normal)
[2023-12-19 02:35] LABS: Appearance, Urine Hazy (Clear); Color, Urine Yellow (P-Yellow)
[2023-12-19 02:36] LABS: Bacteria Mod /hpf; Squamous Epithelial Cells Not Seen /hpf (Few); White Blood Cells, Urine TNTC /hpf (0-5)
[2023-12-19 02:45] LABS: International Normalized Ratio 1.05; Prothrombin Time Results 11.2 Sec (9.7-11.5)
[2023-12-19 02:50] LABS: Albumin, Blood 3.2 g/dL (3.4-5.0); Albumin/Globulin Ratio 0.8 (0.8-1.8); Bilirubin, Total 0.6 mg/dL (0.1-1.0); Bun/Creatinine Ratio 18.3 (12.0-20.0); Calcium, Blood 9.2 mg/dL (8.5-10.1); Creatinine, Blood 0.55 mg/dL (0.40-1.00); Globulin, Blood 4.2 g/dL (2.2-4.0); Potassium, Blood 4.4 mmol/L (3.5-5.5); Total Protein, Blood 7.4 g/dL (6.4-8.2)
--- NOTE | 2023-12-19 04:10 | NUR ---
ARRIVAL PT ARRIVED AT 0248 VIA ER [facility]. PT A&O X4, PLEASANT AND COOPERATIVE WITH CARE. PAMELLA, FOLLOWS COMMANDS, REPORTS N/T FROM HX OF NEUROPATHY. DENIES CP/PRESSURE, SOB, DIZZINESS. PT ENDORSES NAUSEA, MEDICATION PER MAR WHICH PROVIDED RELIEF. PT REPORTING 8/10 PAIN IN ABD AND EPIGASTRIC AREA, 25 MCG OF FENTANYL ADMINISTERED PER MAR; WITH "LITTLE RELIEF" ALTHOUGH THIS RN NOTES PT DID REST/RELAX AND MOANING DECREASED AFTER A SHORT TIME. PT REPORTS LAST BM 12/17/23 IN THE MORNING, STATES IT WAS "SOFT AND LIGHT IN COLOR". REPORTS DECREASED APPETITE AND RECENT WEIGHT LOSS OF 5-10 LBS OVER LAST MONTH OR TWO. PT DOES REPORT "KIND OF FEELING LIKE I NEED TO USE THE BATHROOM TO GO POOP" BUT DID NOT WANT TO TRY. PT BELCHING OFTEN. PT REPORTS FREQUENCY AND URGENCY WHEN VOIDING. IVF PER MAR, ABX PER OCT. PT 1 PERSON ASSIST WITH WALKER OR CANE FOR TRANSFER OR TO [facility]. PT MILDLY UNSTEADY ON HER FEET INTITALLY, ALSO LIKES TO GRAB ON TO SURROUNDING ITEMS FOR SUPPORT. PT SETTLED AND ORIENTED TO ROOM, DAUGHTER AT BEDSIDE WITH PT. PT ON RA AT ARRIVAL, VS; BP 152/82, HR 89, RR 18, TEMP 97.5, SPO2 99%. PT RESTING AT THIS TIME. CALL LIGHT IN REACH
--- NOTE | 2023-12-19 05:07 | NUR ---
SHIFT SUMMARY PT REMAINS A&O X4. NO ACUTE CHANGES FROM ARRIVAL NOTE. PT REPORTS PAIN IS "MANAGEABLE" AT THIS TIME AND NOT REQUESTING MEDICATION AT THIS TIME. BP TRENDING UP; LAST VITALS SHOWED BP 152/82, HR 89. PT REPORTS NAUSEA HAS IMPROVED. PT DENIES ANY NEEDS AND IS CURRENTLY RESTING. DAUGHTER AT BEDSIDE. HOSPITALIST IN ROOM TO ROUND ON PT, ALTHOUGH PT SLEEPING. THIS RN SPOKE WITH PROVIDER ABOUT RECENT CRITICAL LACTIC ACID OF 3.4. NO NEW ORDERS AT THIS TIME. THIS RN NOTIFIED HOSPITALIST OF BP TRENDING UPWARDS WELL, NO NEW ORDERS AT THIS TIME. WILL UPDATE ONCOMING RN. CALL LIGHT IN REACH.
[2023-12-19] MEDS ORDERED: HydrALAZINE HCl 20 MG / ML 1ML Vial IV PRN (06:30)
[2023-12-19] MEDS ORDERED: Enoxaparin 40 MG/0.4 ML SYR SC SCH (09:00)
[2023-12-19] MEDS ORDERED: FentaNYL Citrate 50 MCG/ML 2 ML Injection ONE ×2 (09:25→12:29)
[2023-12-19] MEDS ORDERED: ePHEDrine Sulfate 50 MG/ML 1ML Injection ONE (09:28)
[2023-12-19] MEDS ORDERED: MetroNIDAZOLE 500MG/NS 100 ml 100 ML IV SCH (09:30)
[2023-12-19] MEDS ORDERED: Etomidate 2MG / ML 10ML Vial ONE (09:30)
[2023-12-19] MEDS ORDERED: NS 250 ML IV ONE (09:31)
[2023-12-19] MEDS ORDERED: propofoL 20 ML IV ONE (09:41)
[2023-12-19] MEDS ORDERED: Bupivacaine 0.5% HCl 5 MG/ML 30MLVIAL ONE (11:06)
[2023-12-19] MEDS ORDERED: Dexamethasone Sod Phos 10 MG/ML 1ML VIAL ONE (11:30)
[2023-12-19] MEDS ORDERED: Rocuronium Bromide 10 MG/ML 5ML Injection IV ONE ×3 (11:30→11:53)
[2023-12-19] MEDS ORDERED: Ondansetron HCl 2 MG / ML 2ML Vial ONE (11:30)
[2023-12-19] MEDS ORDERED: Ondansetron HCl 2 MG / ML 2ML Vial IV ONE (11:33)
[2023-12-19] MEDS ORDERED: Dexamethasone Sod Phos 10 MG/ML 1ML VIAL IV ONE (11:33)
[2023-12-19] MEDS ORDERED: SuccINYLCHOLINE Chloride 100 MG/5 ML 5MLSYR IV ONE ×2 (11:33→11:53)
[2023-12-19] MEDS ORDERED: FentaNYL Citrate 50 MCG/ML 2 ML Injection IV ONE (11:33)
[2023-12-19] MEDS ORDERED: Vasopressin 20 UNITS/ML 1ML Vial IV ONE (11:34)
[2023-12-19] MEDS ORDERED: Sugammadex Sodium 200 MG/2ML SDV (100 MG/ML) ONE (11:39)
[2023-12-19] MEDS ORDERED: HYDROmorphone HCl/Pf 1MG SYR ONE (14:09)
[2023-12-19] MEDS ORDERED: OLANZapine 10 MG Vial IM PRN (14:50)
--- NOTE | 2023-12-19 15:17 | NUR ---
ASSUMED CARE OF PT AT [address] NICHOLS IN TO SEE PT DURRING SHIFT CHANGE AND REQUESTS SUPPLIES AND EQUIPMENT FOR NGT PLACEMENT. THIS WAS UNSUCESSFUL AND LATER IN THE AM THE DECISION WAS MADE TO TAKE PT TO SURGERY. PTs DTR AT BEDSIDE FOR THIS DISCUSSION. PT WENT TO SURGERY AT 0937. PACU REPORTED PT HAS BEEN CONFUSED AND COMBATIVE POST-OP. PT WILL BE SENT TO PCU09 INSTEAD OF RETURNING TO [facility]. PTs DTR WAITING IN ROOM FOR PTs RETURN, SHE IS UPDATED BY THIS RN AND SHE, AND ALL THE PT'S BELONGINGS ARE TRANSFERRED TO PCU09. BEDSIDE REPORT GIVEN TO PRASHANTH BURGOS JUST PT ARRIVES TO ROOM FROM PACU.
--- NOTE | 2023-12-19 17:20 | NUR ---
SHIFT SUMMARY PT ARRIVED FROM OR AT APPROX. 1420. UPON ARRIVAL SHE APPEARED TO BE SLEEPING COMFORTABLY, VSS. SHE IS NOW ALERT AND ORIENTED TO SELF, FAMILY, PLACE, SITUATION AND MONTH/YEAR. SHE HAS REPORTED WANTING TO GET UP BUT HAS BEEN EASILY REDIRECTABLE TO STAY IN BED. SURGICAL INCISION NOTED IN MIDLINE ABD AND IS COVERED W/ DELFINA DRESSING AND IS D/C/I. SHE DENIES PAIN AT THIS TIME AND HAS BEEN EDUCATED REGARDING PAIN MANAGEMENT. HER DAUGHTER JERICA IS AT BEDSIDE AND PLANS TO STAY OVERNIGHT W/ PT. NS IS INFUSING PER EMAR ORDERS. SHE HAS HAD ICE CHIPS PO INTAKE. SHE HAS DENIED URGE TO VOID, PER REPORT CARR WAS DC'D AT APPROX. 1330, WILL CONTINUE TO MONITOR URINARY OUTPUT STATUS. SHE DENIES FEELINGS OF NAUSEA/VOMITTING. SHE DENIES CP/PRESSURE WELL FEELING SOB. CALL LIGHT IS W/IN REACH, BED ALARM ON.
[2023-12-19] MEDS ORDERED: CefTRIAXone Sodium 1,000 MG in NS 100 ML IV SCH (21:00)
--- NOTE | 2023-12-19 21:06 | NUR ---
ASSUMPTION OF CARE AFTER RECEIVING REPORT FROM DAY RN, THIS RN ASSUMED CARE AT APPROX 1915. PATIENT SLEEPING DURING INITIAL ENCOUNTER. DAUGHTER, JERICA, AT BEDSIDE. PATIENT IS EASILY AROUSABLE WITH VERBAL STIMULI. ALERT TO PERSON, PLACE, SITUATION, DATE/TIME. DOES EXPERIENCE EPISODES OF INCREASED CONFUSION, EASILY REDIRECTABLE. DAUGHTER ASSISTING WITH CARE. AFEBRILE. TELEMETRY SHOWING SINUS TACH 100s-110s. BP STABLE. DENIES CHEST PAIN, PRESSURE. ON ROOM AIR, SATs >90%. RESPIRATIONS EVEN, UNLABORED. S/P SMALL BOWEL RESECTION. MIDLINE INCISION WITH DELFINA DRESSING AND ABD BINDER. SCANT DRIED BLOOD ON DRESSING. REPORTS MILD PAIN WITH POSITION CHANGES AT THIS TIME. TOLERATING ICE CHIPS. UP TO BEDSIDE COMMODE TO VOID WITH ONE PERSON ASSIST. CALL LIGHT IN REACH. BED ALARM ON.
[2023-12-20 03:10] VITALS: BP 125/53
[2023-12-20 04:34] LABS: Hematocrit 36.6 % (33.0-51.0); Hemoglobin 11.5 g/dL (11.5-16.0); Mean Corpuscular HGB 26.8 pg (26.0-34.0); Mean Corpuscular HGB Conc 31.4 g/dL (31.5-36.5); Mean Corpuscular Volume 85 fL (80-100); Mean Platelet Volume 10.9 fL (9.1-12.4); Platelet Count 235 K/mm3 (150-400); RDW Coefficient Variation 16.7 % (11.7-14.2); RDW Standard Deviation 51.5 fL (35.1-46.3); Red Blood Cell Count 4.29 M/mm3 (3.80-5.20); White Blood Cell Count 10.85 K/mm3 (4.00-11.30)
[2023-12-20 05:01] LABS: Bun/Creatinine Ratio 27.6 (12.0-20.0); Calcium, Blood 8.6 mg/dL (8.5-10.1); Creatinine, Blood 0.47 mg/dL (0.40-1.00); Potassium, Blood 3.8 mmol/L (3.5-5.5)
[2023-12-20 05:08] LABS: BAND PERCENT MAN 32 % (0-8); BASOPHILS PERCENT MAN 0 % (0-2); EOSINOPHILS PERCENT MAN 0 % (0-6); LYMPHOCYTES % ATYPICAL MANUAL 1 % (0-0); LYMPHOCYTES ABSOLUTE MAN 1.73 K/mm3 (0.84-5.20); LYMPHOCYTES PERCENT MAN 15 % (21-46); MONOCYTES ABSOLUTE MAN 0.75 K/mm3 (0.16-1.47); MONOCYTES PERCENT MAN 7 % (4-13); NEUTROPHILS ABSOLUTE MAN 8.35 K/mm3 (1.96-9.15); SEG NEUTROPHILS PERCENT MAN 45 % (41-73); TOTAL CELLS COUNTED 100
--- NOTE | 2023-12-20 06:10 | NUR ---
SHIFT SUMMARY NO ACUTE EVENTS SINCE ASSUMPTION OF CARE. PATIENT SLEPT PERIODICALLY THROUGHOUT SHIFT. UP FREQUENTLY TO USE BSC TO VOID. EXPERIENCES INTERMITTENT EPISODES OF INCREASED CONFUSION, ESPECIALLY UPON WAKING. IS EASILY REORIENTABLE. DAUGHTER AT BEDSIDE ASSISTING WITH CARE AND REORIENTING. AFEBRILE. TELEMETRY SHOWING SINUS 90s. SINUS TACH 100s-110s WITH MOBILITY. BP STABLE. DENIES CHEST PAIN, PRESSURE. ON ROOM AIR, SATs >90%. RESPIRATIONS EVEN, UNLABORED. MIDLINE INCISION W/ DELFINA DRESSING C/D/I. ABD BINDER IN PLACE. EXPERIENCES INCREASED ABD PAIN WITH MOBILITY, TOLERABLE AT REST AND WITH K PAD. TOLERATING SMALL SIPS OF WATER, ICE CHIPS. VOIDING. NO BM THIS SHIFT. CALL LIGHT IN REACH. BED ALARM ON. WILL CONTINUE TO MONITOR AND REPORT TO ONCOMING RN.
[2023-12-20 08:37] VITALS: BP 122/68
--- NOTE | 2023-12-20 09:00 | NUR ---
UPDATE PT AWAKE AND ALERT ANSWERING QUESTIONS APPROPRIATELY. VS STABLE. PT COMPLAINS OF MILD PAIN TO ABD. MIDLINE INCISION IN PLACE WITH DELFINA DRAIN. DIFFICULTY WITH IV ACCESS THIS AM, BUT 20G PLACED TO LEFT UPPER ARM. DAUGHTER AT BEDSIDE. PT UPGRADED TO CLEAR LIQUDS THIS AM AND TOLERATING WELL. WILL CONTINUE TO MONITOR CLOSELY
[2023-12-20] MEDS ORDERED: FentaNYL Citrate 50 MCG/ML 2 ML Injection IV PRN (13:50)
[2023-12-20] MEDS ORDERED: HYDROcodone 5-APAP 325 TAB PO PRN (13:50)
--- NOTE | 2023-12-20 15:38 | NUR ---
UPDATE PT REMAINS ALERT AND ORIENTED WITH MILD FORGETFULNESS AT TIMES. BP STABLE. HR WAS NSR, BUT TELEMETRY HAS BEEN DISCONTINUED. O2 SATS REMAIN ABOVE 90% ON RA. PT COMPLAINED OF ABD PAIN TO MIDLINE INCISION SITE THAT IS RELEIVED WITH MEDICATION ADMINISTRATION. DAUGHTER AT BEDSIDE ALL SHIFT. STATUS CHANGED TO SURGICAL. REPORT GIVEN TO SURGICAL FLOOR RN. PATIENT TO BE TAKEN OVER VIA BED
[2023-12-20 15:58] VITALS: BP 145/65
--- NOTE | 2023-12-20 17:16 | NUR ---
SHIFT SUMMARY PT ARRIVED FROM PCU TO SURGICAL UNIT AT APPROXIMATELY 1555. UPON ARRIVAL PT ALERT AND ORIENTED X3. PT WAS ABLE TO STAND AND TRANSFER FROM W/C TO BED. IV TO DIANNA INFILTRATED AND REMOVED UPON ARRIVAL TO THE ROOM. PAIN MANAGED UPON ARRIVAL TO THE ROOM. PT'S DAUGHTER PRESENT AT THE BEDSIDE.
[2023-12-20 20:19] VITALS: BP 131/80
[2023-12-21 03:21] VITALS: BP 153/97
--- NOTE | 2023-12-21 05:24 | NUR ---
SHIFT SUMMARY AOX4. VSS. POD 2-SM BOWEL RESECTION, MIDLINE W/DELFINA DRESSING COMPRESSED & W/SCANT SHADOWING. REPORTS MINIMAL PAIN /10 ONLY W/PALPATION OF ABD, STATES PAIN LEVEL TOLERABLE. DENIES PASSING FLATUS OR HAVING BM. HAS TOLERATED SIPS & ICE CHIPS W/O ANY N/V. CALL LIGHT & DAUGHTER @BEDSIDE & PT ABLE TO MAKE NEEDS KNOWN. WILL MONITOR.
[2023-12-21 05:30] LABS: Hemoglobin 11.7 g/dL (11.5-16.0); Mean Corpuscular HGB 26.7 pg (26.0-34.0); Mean Corpuscular HGB Conc 31.6 g/dL (31.5-36.5); Mean Corpuscular Volume 84 fL (80-100); Mean Platelet Volume 10.6 fL (9.1-12.4); Platelet Count 253 K/mm3 (150-400); RDW Coefficient Variation 16.6 % (11.7-14.2); RDW Standard Deviation 50.9 fL (35.1-46.3); Red Blood Cell Count 4.39 M/mm3 (3.80-5.20); White Blood Cell Count 10.41 K/mm3 (4.00-11.30)
[2023-12-21 06:04] LABS: Albumin, Blood 2.6 g/dL (3.4-5.0); Anion Gap 8 mmol/L (3-11); Blood Urea Nitrogen 12 mg/dL (8-24); CO2, Blood 25 mmol/L (21-32); Calcium, Blood 8.5 mg/dL (8.5-10.1); Chloride, Blood 104 mmol/L (98-108); Creatinine, Blood 0.45 mg/dL (0.40-1.00); Glomerular Filtration Rate 94 (60-); Glucose, Blood 112 mg/dL (70-99); Phosphorus, Blood 1.1 mg/dL (2.5-4.9); Potassium, Blood 3.6 mmol/L (3.5-5.5); Sodium, Blood 133 mmol/L (136-145)
[2023-12-21 07:10] VITALS: BP 146/79
[2023-12-21] MEDS ORDERED: Potassium Phosphate Dibasic 20 MM in Dextrose 5% 500 ML IV STA (08:12)
[2023-12-21] MEDS ORDERED: Levothyroxine Sodium 0.125 MG Tab PO SCH (14:35)
[2023-12-21] MEDS ORDERED: Bisacodyl 10 MG Supp PR ONE ×2 (14:40→16:00)
[2023-12-21 14:55] VITALS: BP 152/88
--- NOTE | 2023-12-21 18:34 | NUR ---
SHIFT SUMMARY PT A&OX4, VSS/RA, ICE CHIPS ONLY, AMB 1 PP MOD FWW/GB/UP TO CHAIR/AMB TO BRP AND IN HALLWAY, VOIDING DK JASON URINE/PT AND DAUGHTER REPORT 2 SMALL AILYN/BROWN-"FEELS LIKE MORE IS READY TO COME OUT", PAIN MANAGED, IVF/ABX PER EMAR. WILL REPORT TO ONCOMING NOC PRASHANTH.
[2023-12-21 19:15] VITALS: BP 146/84
[2023-12-22 04:58] VITALS: BP 164/80
[2023-12-22 05:29] VITALS: BP 151/84
--- NOTE | 2023-12-22 05:35 | NUR ---
SHIFT SUMMARY A&Ox4, CALLS AND COMMUNICATES NEEDS APPROPRIATELY, CAN BE FORGETFUL AT TIMES; DAUGHTER AT BEDSIDE ASSISTING WITH CARE. BP STABLE, HR 90's, DENIES CP/PRESSURE. SpO2> 92% RA, DENIES SOB. 1 ASSIST TO BSC, CONTINENT OF URINE, PASSING SMALL MUCUS LIKE BM. MIDLINE DELFINA DRESSING C/D/I WNL, ABD BINDER IN PLACE. PT NPO / SIPS&ICE CHIPS. PT w/ C/O TENDERNESS AT SURGICAL SITE, MANAGED PAIN PER EMAR. NO OTHER EVENTS, WILL REPORT TO ONCOMING RN.
[2023-12-22 05:36] LABS: Hematocrit 39.9 % (33.0-51.0); Hemoglobin 12.8 g/dL (11.5-16.0); Mean Corpuscular HGB 26.7 pg (26.0-34.0); Mean Corpuscular HGB Conc 32.1 g/dL (31.5-36.5); Mean Corpuscular Volume 83 fL (80-100); Mean Platelet Volume 10.5 fL (9.1-12.4); Platelet Count 310 K/mm3 (150-400); RDW Coefficient Variation 16.5 % (11.7-14.2); RDW Standard Deviation 49.6 fL (35.1-46.3); White Blood Cell Count 13.71 K/mm3 (4.00-11.30)
[2023-12-22 06:04] LABS: Anion Gap 10 mmol/L (3-11); Blood Urea Nitrogen 11 mg/dL (8-24); Bun/Creatinine Ratio 25.8 (12.0-20.0); CO2, Blood 25 mmol/L (21-32); Calcium, Blood 8.5 mg/dL (8.5-10.1); Chloride, Blood 102 mmol/L (98-108); Creatinine, Blood 0.43 mg/dL (0.40-1.00); Glomerular Filtration Rate 95 (60-); Glucose, Blood 110 mg/dL (70-99); Magnesium, Blood 2.1 mg/dL (1.6-2.4); Phosphorus, Blood 1.9 mg/dL (2.5-4.9); Potassium, Blood 3.8 mmol/L (3.5-5.5); Sodium, Blood 133 mmol/L (136-145)
[2023-12-22] MEDS ORDERED: Bisacodyl 10 MG Supp PR ONE (07:35)
[2023-12-22 08:04] VITALS: BP 149/76
[2023-12-22] MEDS ORDERED: Potassium Phos/Sodium Phos 250 MG PACK PO ONE (08:15)
[2023-12-22] MEDS ORDERED: Enoxaparin 40 MG/0.4 ML SYR SC SCH (09:00)
--- NOTE | 2023-12-22 10:49 | NUR ---
Spiritual Care Support. Pt. is somnolemt, but Pts. daughter is at bedside and welcomes my visit. It is agreed that this broker assistant will return to check on the Pt. later in the day.
[2023-12-22 14:46] VITALS: BP 133/71
--- NOTE | 2023-12-22 16:21 | NUR ---
SHIFT SUMMARY PATIENT IS ALERT AND ORIENTED X 4. SHE COMMUNICATED WELL AND ANSWERED ALL QUESTIONS APPROPRIATELY. DAUGHTER AT BEDSIDE WITH PATIENT MOST OF THIS SHIFT. VERY PLEASANT AND COOPERATIVE. NORMAL MOOD AND AFFECT. VSS. HAD SOME C/O LOW BACK PAIN THAT IS POSITIONAL IN BED WITH PAIN LEVEL OF 8/10. PRN NORCO GIVEN PER PATIENT REQUEST AND WAS EFFECTIVE. PATIENT STATED PAIN WAS 0/10 REST OF THE SHIFT THUS FAR. MIDLINE INCISION TO ABDOMEN COVERED WITH DELFINA DRESSING. REMAINS CLEAN AND INTACT. HAS SCANT OLD AND DRIED SEROSANGUINEOUS EXUDATE NOTED TO DRESSING ONLY. RECEIVED ORDER FROM DR. NICHOLS FOR ONE TIME ORDER DULCOLAX SUPPOSITORY. ADMINISTERED. NO BOWEL MOVEMENTS AT THIS TIME. SHE DENIES ANY ABDOMINAL DISCOMFORT. NO C/O NAUSEA OR VOMITTING. PATIENT WAS UP IN CHAIR X2 THIS SHIFT. ALSO AMBULATES WITH FWW TO TOILET WITH STANDBY ASSIST. PERIPHERAL IV TO RIGHT FOREARM REMAINED PATENT THIS SHIFT AND IV ABX ADMINISTERED WITH NO ISSUES. ALL PATIENT NEEDS ANTICIPATED AND MET. CALL LIGHT WITHIN REACH.
[2023-12-22 20:24] VITALS: BP 137/68
[2023-12-23 05:56] VITALS: BP 135/74
--- NOTE | 2023-12-23 06:13 | NUR ---
SHIFT SUMMARY POD3 SMALL BOWEL RESECTION. MIDLINE DELFINA IS C/D/I, COMPRESSED. VSS. PT SLEPT WELL T/O THE NIGHT. AMBULATED TO THE BSC MULTIPLE TIMES TO VOID AND HAVE BM'S. BM REMAINS LIQUID LIKE. PT REPORTS ABD FEELS "MUCH BETTER". TOLLERATING SIPS AND CHIPS W/O N/V. NO ACUTE EVENTS NOTED T/O THE NIGHT. PT EXPRESSED CONCERN ABOUT TAKING A PPI TO HELP WITH GERD, BUT CURRENTLY DENIES REFLUX OR HEARTBURN. PLAN TO INFORM ONCOMING NURSE.
[2023-12-23 06:53] LABS: BASOPHILS ABSOLUTE AUTO 0.05 K/mm3 (0.00-0.23); BASOPHILS PERCENT AUTO 1 % (0-2); EOSINOPHILS ABSOLUTE AUTO 0.21 K/mm3 (0.00-0.68); EOSINOPHILS PERCENT AUTO 2 % (0-6); Hematocrit 35.6 % (33.0-51.0); IMMATURE GRAN ABSOLUTE AUTO 0.05 K/mm3 (0.00-0.10); IMMATURE GRAN PERCENT AUTO 1 % (0-1); LYMPHOCYTES ABSOLUTE AUTO 1.41 K/mm3 (0.84-5.20); LYMPHOCYTES PERCENT AUTO 13 % (21-46); MONOCYTES ABSOLUTE AUTO 0.77 K/mm3 (0.16-1.47); MONOCYTES PERCENT AUTO 7 % (4-13); Mean Corpuscular HGB 26.6 pg (26.0-34.0); Mean Corpuscular HGB Conc 30.9 g/dL (31.5-36.5); Mean Corpuscular Volume 86 fL (80-100); Mean Platelet Volume 10.2 fL (9.1-12.4); NEUTROPHILS ABSOLUTE AUTO 8.18 K/mm3 (1.96-9.15); NEUTROPHILS PERCENT AUTO 77 % (41-73); Platelet Count 245 K/mm3 (150-400); RDW Coefficient Variation 16.7 % (11.7-14.2); RDW Standard Deviation 51.9 fL (35.1-46.3); Red Blood Cell Count 4.14 M/mm3 (3.80-5.20); White Blood Cell Count 10.67 K/mm3 (4.00-11.30)
[2023-12-23 07:17] VITALS: BP 148/69
[2023-12-23 07:20] LABS: Bun/Creatinine Ratio 16.1 (12.0-20.0); Calcium, Blood 7.4 mg/dL (8.5-10.1); Creatinine, Blood 0.44 mg/dL (0.40-1.00); Potassium, Blood 3.3 mmol/L (3.5-5.5)
[2023-12-23] MEDS ORDERED: Famotidine 20 MG Tab PO SCH (07:49)
[2023-12-23] MEDS ORDERED: Potassium Chloride 20 MEQ TabCR PO ONE (08:20)
[2023-12-23 14:27] VITALS: BP 134/65
--- NOTE | 2023-12-23 16:25 | NUR ---
SHIFT SUMMARY POST-OP DAY 3 SMALL BOWEL RESECTION A&O X 4. PLEASANT AND COOPERATIVE. MIDLINE ABDOMEN INCISION WITH DELFINA DRESSING. REMAINED CLEAN, DRY AND INTACT. DIET CHANGED TO CLEAR LIQUID PER DR. WEAVER. TOLERATED CLEAR LIQUID DURING LUNCH AND WAS UPGRADED TO FULL LIQUID FOR DINNER. NO NVD. NO BOWEL MOVEMENT THIS SHIFT. ABD DISTENDED BUT IMPROVING. THREE BOWEL MOVEMENTS REPORTED DURING LEAD INVESTIGATOR. AMBULATORY WITH STANDBY ASSIST AND WALKER. WALKED WITH PHYSICAL THERAPY IN HALLWAY. IV ABX DC'D PER PHYSICIAN ORDER. CONTINUES IV FLUIDS. VSS THIS SHIFT. PAIN MANAGED PER EMAR. ALL NEEDS ANTICIPATED AND MET. CALL LIGHT WITHIN REACH.
[2023-12-23 20:27] VITALS: BP 142/82
[2023-12-24 02:32] VITALS: BP 137/71
--- NOTE | 2023-12-24 04:13 | NUR ---
SHIFT SUMMARY POD5 BOWEL RESECTION W/ MIDLINE INCISION. DELFINA REMAINS C/D/I AND COMPRESSED. PT HAS HAD NO BM'S TONIGHT AND DENIES FLATTUS BUT REPORTS OVERALL HER ABD FEELS IMPROVED. ONE EPISODE OF NAUSEA NOTED W/O EMESIS. PT AMBULATED T/O THE HALLS AND TO THE [facility] T/O THE NIGHT. VOIDING W/O DIFFICULTY. TOLLERATING MINIMAL PO INTAKE. PT MEDICATED FOR PAIN ONCE W/NORCO W/GOOD RESULTS. PLAN TO ADVANCE DIET FUTHER TODAY AND POSSIBLY D./C HOME. THE PATIENT IS CURRENTLY SLEEPING, IN NO DISTRESS, CALL LIGHT IN REACH
[2023-12-24 06:33] LABS: BASOPHILS ABSOLUTE AUTO 0.05 K/mm3 (0.00-0.23); BASOPHILS PERCENT AUTO 1 % (0-2); EOSINOPHILS ABSOLUTE AUTO 0.29 K/mm3 (0.00-0.68); EOSINOPHILS PERCENT AUTO 3 % (0-6); Hemoglobin 11.8 g/dL (11.5-16.0); IMMATURE GRAN ABSOLUTE AUTO 0.06 K/mm3 (0.00-0.10); IMMATURE GRAN PERCENT AUTO 1 % (0-1); LYMPHOCYTES ABSOLUTE AUTO 1.67 K/mm3 (0.84-5.20); LYMPHOCYTES PERCENT AUTO 17 % (21-46); MONOCYTES ABSOLUTE AUTO 1.17 K/mm3 (0.16-1.47); MONOCYTES PERCENT AUTO 12 % (4-13); Mean Corpuscular HGB 26.5 pg (26.0-34.0); Mean Corpuscular HGB Conc 31.9 g/dL (31.5-36.5); Mean Corpuscular Volume 83 fL (80-100); Mean Platelet Volume 9.9 fL (9.1-12.4); NEUTROPHILS ABSOLUTE AUTO 6.48 K/mm3 (1.96-9.15); NEUTROPHILS PERCENT AUTO 67 % (41-73); Platelet Count 260 K/mm3 (150-400); RDW Coefficient Variation 16.5 % (11.7-14.2); RDW Standard Deviation 49.6 fL (35.1-46.3); Red Blood Cell Count 4.45 M/mm3 (3.80-5.20); White Blood Cell Count 9.72 K/mm3 (4.00-11.30)
--- NOTE | 2023-12-24 06:44 | NUR ---
ASSUMPTION OF CARE AT 0500. REPORT RECEIVED FROM SUELLEN Mosley RN. PT A/OX4, AWAKE IN BED WITH DTR AT BEDSIDE. PT DENIES CONCERNS. CALL LIGHT IN REACH.
[2023-12-24 07:02] LABS: Bun/Creatinine Ratio 5.5 (12.0-20.0); Calcium, Blood 7.6 mg/dL (8.5-10.1); Creatinine, Blood 0.36 mg/dL (0.40-1.00); Potassium, Blood 3.1 mmol/L (3.5-5.5)
[2023-12-24 07:23] VITALS: BP 130/64
[2023-12-24] MEDS ORDERED: Potassium Chloride 20 MEQ TabCR PO ONE (08:30)
[2023-12-24] MEDS ORDERED: Bisacodyl 10 MG Supp PR PRN (09:00)
[2023-12-24] MEDS ORDERED: Bisacodyl 10 MG Supp PR ONE (09:00)
--- NOTE | 2023-12-24 14:25 | NUR ---
"Spiritual Care | Family support. Pt. is somnolent during the visit, but daughter is bedside and welcomes my visit. Facilitate a short review of Pts. life and condition. Listen with empathy and a calming presence. Daughter verbalized gratitude for checking in for the second day. Daughter will inform Pt. of the spiritual care attempt."
[2023-12-24 14:37] VITALS: BP 125/84
--- NOTE | 2023-12-24 16:53 | NUR ---
PATIENT IS ALERT AND ORIENTED AND COOPERATIVE WITH CARE. HER ABDOMEN IS DISTENDED. SUPPOSITORY GIVEN THIS MORNING. NO BM SO FAR THIS SHIFT. PATIENT HAS BEEN AMBULATING IN HER ROOM WITH HER DAUGHTERS HELP. UP TO THE CHAIR FOR MEALS. CHANGED BACK TO A CLEAR LIQUID DIET AND ENCOURAGED TO JUST PICK AT HER MEALS AND EAT LESS TODAY TO GIVE HER BOWELS A REST. NO C/O OAIN. WILL CONTINUE TO MONITOR
[2023-12-24 18:29] VITALS: BP 138/87
[2023-12-25 04:11] VITALS: BP 145/73
[2023-12-25 06:12] LABS: Bun/Creatinine Ratio 2.4 (12.0-20.0); Calcium, Blood 7.9 mg/dL (8.5-10.1); Creatinine, Blood 0.41 mg/dL (0.40-1.00); Potassium, Blood 3.2 mmol/L (3.5-5.5)
--- NOTE | 2023-12-25 06:27 | NUR ---
SHIFT SUMMARY PT HAS RESTED T/O THE NIGHT. PT HAS NOT HAD ANY N/V THIS SHIFT. ABD IS DISTENDED AND BOWEL TONES ARE HYPOACTIVE. PT HAS NOT HAD A BM THIS SHIFT. PT RECEIVED A SUPPOSITORY YESTERDAY DURING DAYSHIFT. PT IS NOW PASSING GAS THIS AM, AND DOES NOT REPORT ANY ABD PAIN THIS SHIFT. TOLERATING DIET. VITALS ARE STABLE. PT DAUGHTER AT BEDSIDE T/O THE NIGHT AND ASSIST PT WITH ADLS. PLAN OF CARE REMAINS UNCHANGED. BED IN LOWEST POSITION, CALL LIGHT WITHIN REACH.
[2023-12-25 07:24] VITALS: BP 135/84
[2023-12-25] MEDS ORDERED: Potassium Chloride 20 MEQ TabCR PO ONE (08:00)
[2023-12-25] MEDS ORDERED: Potassium Chloride 10 Meq Tablet SA PO ONE (11:05)
[2023-12-25 15:33] VITALS: BP 143/80
--- NOTE | 2023-12-25 17:02 | NUR ---
SHIFT SUMMARY POD6 SB RESECT, MIDLINE DELFINA WNL, PASSING LARGE AMT FLATUS/LARGE BM THIS AFTERNOON. A&OX4/OCC FORGETFUL, VSS/RA, DAUGHTER BEDSIDE, MARIELENA PO CLD, VOIDING, AMB SBA FWW/GB, PAIN MANAGED, IV SL. WILL REPORT TO ONCOMING NOC RN.
[2023-12-25 18:39] VITALS: BP 142/72
[2023-12-26 02:55] VITALS: BP 121/70
[2023-12-26 05:24] VITALS: BP 123/77
--- NOTE | 2023-12-26 06:05 | NUR ---
BENDING ROLL HAND A&OX4, VITAL STABLE, PT SLEPT WELL. PT ABBIS STILL DISTANTED AND PT HAS BEEN PASSING GAS REGLARLY. PT SAID SHE HAD BOWEL MOVEMENT YESTERDAY EVENING. DAUGHTER IS STILL AT BEDSIDE AND IS HELPING HER TO BR.
[2023-12-26 07:18] VITALS: BP 155/77
[2023-12-26] MEDS ORDERED: Potassium Chloride 20 MEQ TabCR PO ONE ×2 (10:15→13:25)
[2023-12-26 14:55] VITALS: BP 127/62
--- NOTE | 2023-12-26 17:09 | NUR ---
SHIFT SUMMARY POD7 SB RESECT, MIDLINE DELFINA WNL, PASSING LARGE AMT FLATUS/MULTI BMs. A&OX4/OCC FORGETFUL/DAUGHTER BEDSIDE, VSS/RA, MARIELENA PO REG DIET, VOIDING, AMB SBA FWW/GB, DENIES PAIN, IV SL. WILL REPORT TO ONCOMING NOC RN.
[2023-12-26] MEDS ORDERED: DEXTROMETHORPHAN/BENZOCAINE 1 EACH LOZENGE MT PRN (19:00)
[2023-12-26 19:48] VITALS: BP 144/87
[2023-12-27 03:46] VITALS: BP 137/77
--- NOTE | 2023-12-27 06:33 | NUR ---
SUMMARY PT SLEPT TONIGHT. PLANS FOR DISCHARGE IN AM.
[2023-12-27 07:23] VITALS: BP 127/69
[2023-12-27] MEDS ORDERED: BISA10S PR (09:59)
[2023-12-27] MEDS ORDERED: FAMO20 PO (09:59)
--- NOTE | 2023-12-27 12:41 | NUR ---
DISCHARGE PATIENT TOLERATED PO INTAKE, PASSING GAS, HAVING STOOLS. DELFINA DRESSING TAKEN OFF AND NEW MEDIPORE PLACED. SHOWERED, AND AMBULATING IN ROOM. IV TAKEN OUT INTACT. DC INSTRUCTIONS READ AND VERBALIZED, SIGNED. PRESCRIPTIONS FAXED AND RECIEVED BY SIENA. PATIENT LEAVES VIA PRIVATE CAR.
== END 2023-12-27 12:35 | disposition home or self-care (01) | DRG 329 ==
LOC: ER 21:45 → PCU 12-19 02:05 → SURS 12-19 02:05 → PCU 12-19 14:20 → SURS 12-20 16:40
PROVIDERS: Family Medicine; Internal Medicine; Physician Assistant; Surgery; ADMIT Internal Medicine
PROC: 0DB80ZZ Excision of Small Intestine, Open Approach (ICD-10-PCS; principal; 2023-12-19 09:00)
DX: K56.609 Unspecified intestinal obstruction, unspecified as to partial versus complete obstruction (principal); G92.8 Other toxic encephalopathy; E87.1 Hypo-osmolality and hyponatremia; K21.9 Gastro-esophageal reflux disease without esophagitis; I10 Essential (primary) hypertension; E87.6 Hypokalemia; G89.29 Other chronic pain; E83.39 Other disorders of phosphorus metabolism; E03.9 Hypothyroidism, unspecified; M06.9 Rheumatoid arthritis, unspecified; Z66 Do not resuscitate; Z88.0 Allergy status to penicillin; Z88.8 Allergy status to other drugs, medicaments and biological substances; K44.9 Diaphragmatic hernia without obstruction or gangrene; M81.0 Age-related osteoporosis without current pathological fracture; Z90.710 Acquired absence of both cervix and uterus; H26.9 Unspecified cataract; Z79.899 Other long term (current) drug therapy; Z98.890 Other specified postprocedural states; Z87.19 Personal history of other diseases of the digestive system; Z79.890 Hormone replacement therapy; M05.79 Rheumatoid arthritis with rheumatoid factor of multiple sites without organ or systems involvement
CPT/HCPCS: 36415; 51798; 74177; 80048; 80053; 80069; 80076; 81001; 82565; 83605; 83690; 83735; 83880; 84132; 85025; 85027; 85610; 85651; 86140; 87040; 87086; 87147; 88307; 93005; 93010; 96365-59; 96366; 97110; 97116; 97162; 97530; 99285-25; A9270; J0330; J0696; J1100; J1170; J1650; J2405; J2704; J3010; J7030; J7050; J7060; Q9967

== ENCOUNTER 2024-04-19 13:37 | Day surgery (SDC) | payer MEDICARE, OTHER ==
[~2024-04-19] VITALS: Ht 152.4 cm; Wt 48.2 kg
[~2024-04-19 13:37] MED LIST changes: +Atropine Sulfate 0.1 MG/ML 10ML SYR ONE; +BISA10S PR; +Glycopyrrolate 0.2 MG/ML 1MLVIAL ONE; +Lidocaine 2% 5 ML SDV ONE; +Lidocaine HCl/Pf 1% 5 ML VIAL ONE; +Methylene Blue 1% 100 MG/10 ML VIAL ONE; +Ondansetron HCl 2 MG / ML 2ML Vial ONE; +Triamcinolone Inj Susp 40 MG / ML 1ML Vial ONE; +ePHEDrine Sulfate 50 MG/ML 1ML Injection ONE
[2024-04-19] MEDS ORDERED: propofoL 20 ML IV ONE ×2 (14:54)
[2024-04-19] MEDS ORDERED: Lactated Ringer's 1,000 ML IV ONE (15:57)
[2024-04-19] MEDS ORDERED: Vasopressin 20 UNITS/ML 1ML Vial ONE (15:59)
[2024-04-19] MEDS ORDERED: Etomidate 2MG / ML 10ML Vial ONE (16:29)
--- NOTE | 2024-04-19 17:01 | NUR ---
04/19/24 1701 Jessica Anderson UPPER SCOPE USED BY DR LOPEZ DURING COLONOSCOPY PER DR TORRES.
[2024-04-19 18:00] VITALS: BP 170/63
== END 2024-04-19 17:43 | disposition home or self-care (01) ==
LOC: ORSCSDS 13:37
PROVIDERS: Internal Medicine Gastroenterology
PROC: 0DJD8ZZ Inspection of Lower Intestinal Tract, Via Natural or Artificial Opening Endoscopic (ICD-10-PCS; principal; 2024-04-19 15:00)
DX: K50.112 Crohn's disease of large intestine with intestinal obstruction (principal); K57.30 Diverticulosis of large intestine without perforation or abscess without bleeding; K21.9 Gastro-esophageal reflux disease without esophagitis; J84.9 Interstitial pulmonary disease, unspecified; I10 Essential (primary) hypertension; Z79.899 Other long term (current) drug therapy; Z87.891 Personal history of nicotine dependence
CPT/HCPCS: J0461; J2001; J2405; J2704; J3301; J7120; Q9968

== ENCOUNTER 2025-06-12 16:43 | Inpatient (IN) | payer MEDICARE, OTHER ==
[~2025-06-12] VITALS: Ht 152.4 cm; Wt 50.8 kg
[~2025-06-12 16:43] MED LIST changes: -Atropine Sulfate 0.1 MG/ML 10ML SYR ONE; -Glycopyrrolate 0.2 MG/ML 1MLVIAL ONE; -Lidocaine 2% 5 ML SDV ONE; -Lidocaine HCl/Pf 1% 5 ML VIAL ONE; -Methylene Blue 1% 100 MG/10 ML VIAL ONE; -Ondansetron HCl 2 MG / ML 2ML Vial ONE; -Triamcinolone Inj Susp 40 MG / ML 1ML Vial ONE; -ePHEDrine Sulfate 50 MG/ML 1ML Injection ONE
[2025-06-12] MEDS ORDERED: NS 1,000 ML IV SCH ×2 (16:55→20:30)
[2025-06-12 17:49] LABS: Hematocrit 43.1 % (33.0-51.0); Hemoglobin 13.6 g/dL (11.5-16.0); Mean Corpuscular HGB Conc 31.6 g/dL (31.5-36.5); Mean Corpuscular Volume 81 fL (80-100); NRBC ABSOLUTE 0.00 K/mm3 (0.00-0.02); NRBC Auto 0.0 /100 WBC (0.0-0.2); Platelet Count 337 K/mm3 (150-400); RDW Coefficient Variation 18.1 % (11.7-14.2); RDW Standard Deviation 49.8 fL (35.1-46.3)
[2025-06-12 18:03] LABS: Alanine Aminotransfer (ALT/SGP 26.0 U/L (12-78); Albumin, Blood 3.3 g/dL (3.4-5.0); Albumin/Globulin Ratio 0.8 (0.8-1.8); Anion Gap 10.0 mmol/L (3-11); Aspartate Aminotrans (AST/SGOT 36.0 U/L (12-37); Bilirubin, Total 1.8 mg/dL (0.1-1.0); Blood Urea Nitrogen 28.0 mg/dL (8-24); CO2, Blood 25.0 mmol/L (21-32); Calcium, Blood 10.0 mg/dL (8.5-10.1); Chloride, Blood 100.0 mmol/L (98-108); Creatinine, Blood 0.66 mg/dL (0.40-1.00); Globulin, Blood 4.2 g/dL (2.2-4.0); Glucose, Blood 104.0 mg/dL (70-99); Potassium, Blood 3.4 mmol/L (3.5-5.5); Sodium, Blood 132.0 mmol/L (136-145); Total Protein, Blood 7.5 g/dL (6.4-8.2)
[2025-06-12 18:16] LABS: BAND PERCENT MAN 1 % (0-8); BASOPHILS ABSOLUTE MAN 0.00 K/mm3 (0.00-0.23); BASOPHILS PERCENT MAN 0 % (0-2); EOSINOPHILS ABSOLUTE MAN 0.00 K/mm3 (0.00-0.68); EOSINOPHILS PERCENT MAN 0 % (0-6); LYMPHOCYTES ABSOLUTE MAN 4.52 K/mm3 (0.84-5.20); LYMPHOCYTES PERCENT MAN 16 % (21-46); MONOCYTES ABSOLUTE MAN 0.56 K/mm3 (0.16-1.47); MONOCYTES PERCENT MAN 2 % (4-13); NEUTROPHILS ABSOLUTE MAN 23.16 K/mm3 (1.96-9.15); SEG NEUTROPHILS PERCENT MAN 81 % (41-73)
[2025-06-12 18:28] LABS: Influenza A, PCR NEGATIVE (NEGATIVE); Influenza B, PCR NEGATIVE (NEGATIVE); Resp Syncytial Virus, PCR NEGATIVE (NEGATIVE); SARS-Cov-2 (COVID-19) PCR, MMC NEGATIVE (NEGATIVE)
[2025-06-12 20:52] LABS: Source, Urine Straight Cath
[2025-06-12 20:57] LABS: Bilirubin, Urine Neg (Neg); Glucose Qualitative, Urine Neg (Neg); Ketones, Urine 2+ (Neg); Leukocyte Esterase, Urine 3+ (Neg); Protein, Urine 2+ (Neg); Specific Gravity, Urine 1.020 (1.003-1.022); Urobilinogen, Urine NORM (Normal)
[2025-06-12 20:59] LABS: Color, Urine Yellow (P-Yellow)
[2025-06-12 21:03] LABS: White Blood Cells, Urine 25-50 /hpf (0-5)
[2025-06-12] MEDS ORDERED: Diltiazem HCl 5 MG / ML 5ML Vial IV ONE (21:50)
[2025-06-12] MEDS ORDERED: Ondansetron HCl 2 MG / ML 2ML Vial IV PRN (22:15)
[2025-06-12] MEDS ORDERED: FLU VACC TS2025-26(6MOS UP)/PF 45 MCG/0.5 ML SYRINGE IM SCH (22:15)
[2025-06-12] MEDS ORDERED: NS 1,000 ML IV ONE (22:15)
[2025-06-12 22:37] LABS: Magnesium, Blood 2.6 mg/dL (1.6-2.4); Phosphorus, Blood 3.3 mg/dL (2.5-4.9)
[2025-06-12] MEDS ORDERED: CefTRIAXone Sodium 1,000 MG in NS 100 ML IV SCH (22:52)
[2025-06-12] MEDS ORDERED: Enoxaparin 40 MG/0.4 ML SYR SC SCH (23:00)
[2025-06-13] VITALS (8 sets, daily range): BP systolic 11–151; BP diastolic 62–85
[2025-06-13] MEDS ORDERED: EUTHYROX50 MCG PO (01:33)
[2025-06-13] MEDS ORDERED: Hair, Skin & N1 EACH PO (01:36)
[2025-06-13] MEDS ORDERED: NEBI5 PO (01:37)
[2025-06-13] MEDS ORDERED: ELIQUIS2.5 MG PO (01:37)
[2025-06-13 04:04] LABS: BASOPHILS ABSOLUTE AUTO 0.04 K/mm3 (0.00-0.23); BASOPHILS PERCENT AUTO 0 % (0-2); EOSINOPHILS ABSOLUTE AUTO 0.03 K/mm3 (0.00-0.68); EOSINOPHILS PERCENT AUTO 0 % (0-6); Hematocrit 38.7 % (33.0-51.0); Hemoglobin 12.0 g/dL (11.5-16.0); IMMATURE GRAN ABSOLUTE AUTO 0.12 K/mm3 (0.00-0.10); IMMATURE GRAN PERCENT AUTO 1 % (0-1); LYMPHOCYTES ABSOLUTE AUTO 1.91 K/mm3 (0.84-5.20); LYMPHOCYTES PERCENT AUTO 10 % (21-46); MONOCYTES ABSOLUTE AUTO 1.26 K/mm3 (0.16-1.47); MONOCYTES PERCENT AUTO 7 % (4-13); Mean Corpuscular HGB Conc 31.0 g/dL (31.5-36.5); Mean Corpuscular Volume 83 fL (80-100); NEUTROPHILS ABSOLUTE AUTO 15.85 K/mm3 (1.96-9.15); NEUTROPHILS PERCENT AUTO 83 % (41-73); NRBC ABSOLUTE 0.00 K/mm3 (0.00-0.02); NRBC Auto 0.0 /100 WBC (0.0-0.2); Platelet Count 292 K/mm3 (150-400); RDW Coefficient Variation 18.0 % (11.7-14.2); RDW Standard Deviation 51.6 fL (35.1-46.3)
[2025-06-13 04:24] LABS: Alanine Aminotransfer (ALT/SGP 20.0 U/L (12-78); Albumin, Blood 2.4 g/dL (3.4-5.0); Albumin/Globulin Ratio 0.7 (0.8-1.8); Anion Gap 8.0 mmol/L (3-11); Aspartate Aminotrans (AST/SGOT 28.0 U/L (12-37); Bilirubin, Total 1.0 mg/dL (0.1-1.0); Blood Urea Nitrogen 26.0 mg/dL (8-24); CO2, Blood 25.0 mmol/L (21-32); Calcium, Blood 8.3 mg/dL (8.5-10.1); Chloride, Blood 109.0 mmol/L (98-108); Creatinine, Blood 0.51 mg/dL (0.40-1.00); Globulin, Blood 3.4 g/dL (2.2-4.0); Glucose, Blood 78.0 mg/dL (70-99); Potassium, Blood 3.5 mmol/L (3.5-5.5); Sodium, Blood 138.0 mmol/L (136-145); Total Protein, Blood 5.8 g/dL (6.4-8.2)
--- NOTE | 2025-06-13 04:36 | NUR ---
SHIFT SUMMARY: PATIENT CAME UP FROM ER TODAY AT 0115 WITH FAMILY AT BEDSIDE. PATIENT WAS MOVED FROM THE ER GURNEY TO BED VIA SLIDER SHEET. PATIENT IS A&O TO SELF AND FAMILY. BED ALARM ON A PRECAUTION. PER SHANK TURNER AUBRIE- PATIENT IS IN AFLUTTER AT 118 BPM. PATIENT WAS A 2P ASSIST TO ROLL [id number] IN BED TO GET OLD LINEN REMOVED FROM UNDERNEATH HER AND TO PLACE HER IN A GOWN. PATIENT IS CURRENTLY ON ROOM AIR WITH >90% SPO2. PATIENT DENIES PAIN THROUGHOUT SHIFT. PATIENT IS CURRENTLY LAYING IN BED WITH CALL LIGHT IN REACH. BED ALARM ON.
--- NOTE | 2025-06-13 18:40 | NUR ---
SHIFT SUMMARY PATIENT AOX2. DENIES CP OR SOB. VITALS STABLE. TOLERATING HER MEALS AND UP TO THE BSC TO VOID AND BM. SHE VISITED WITH FAMILY AND SPOKE WITH RESIDENTS AT BEDSIDE. HER HR WAS CONTROLLED MOST OF THE DAY AFTER HER PO METOPROLOL THEN TOWARDS THE END OF THE SHIFT HER HR STARTED TO INCREASE BACK UP TO 110s RESIDENTS ARE AWARE. HER COCCYX IS RED SO SHE HAS BED GETTING TURNED EVERY 2 HOURS WITH FOAM DRESSING PLACED.
[2025-06-14 04:31] LABS: BASOPHILS ABSOLUTE AUTO 0.04 K/mm3 (0.00-0.23); BASOPHILS PERCENT AUTO 0 % (0-2); EOSINOPHILS ABSOLUTE AUTO 0.13 K/mm3 (0.00-0.68); EOSINOPHILS PERCENT AUTO 1 % (0-6); Hematocrit 35.4 % (33.0-51.0); Hemoglobin 10.6 g/dL (11.5-16.0); IMMATURE GRAN ABSOLUTE AUTO 0.05 K/mm3 (0.00-0.10); IMMATURE GRAN PERCENT AUTO 0 % (0-1); LYMPHOCYTES ABSOLUTE AUTO 1.60 K/mm3 (0.84-5.20); LYMPHOCYTES PERCENT AUTO 12 % (21-46); MONOCYTES ABSOLUTE AUTO 0.85 K/mm3 (0.16-1.47); MONOCYTES PERCENT AUTO 7 % (4-13); Mean Corpuscular HGB Conc 29.9 g/dL (31.5-36.5); Mean Corpuscular Volume 84 fL (80-100); NEUTROPHILS ABSOLUTE AUTO 10.50 K/mm3 (1.96-9.15); NEUTROPHILS PERCENT AUTO 80 % (41-73); NRBC ABSOLUTE 0.00 K/mm3 (0.00-0.02); NRBC Auto 0.0 /100 WBC (0.0-0.2); Platelet Count 294 K/mm3 (150-400); RDW Coefficient Variation 17.6 % (11.7-14.2); RDW Standard Deviation 52.7 fL (35.1-46.3)
[2025-06-14 04:57] LABS: Anion Gap 8.0 mmol/L (3-11); Blood Urea Nitrogen 19.0 mg/dL (8-24); CO2, Blood 22.0 mmol/L (21-32); Calcium, Blood 7.9 mg/dL (8.5-10.1); Chloride, Blood 108.0 mmol/L (98-108); Creatinine, Blood 0.49 mg/dL (0.40-1.00); Glucose, Blood 92.0 mg/dL (70-99); Potassium, Blood 3.8 mmol/L (3.5-5.5); Sodium, Blood 134.0 mmol/L (136-145); Thyroid Stimulating Hormone 8.78 uIU/mL (0.360-4.800)
--- NOTE | 2025-06-14 05:51 | NUR ---
SHIFT SUMMARY PT A&OX2-3. SHE IS CONFUSED AT TIMES, HX OF DEMENTIA. HR IN THE 100'S, AFLUTTER. SHE DENIES ANY CP/PRESSURE, NUMB/TINGLING, SBP STABLE. SpO2 >92% ON RA, SHE DENIES ANY SOB. PT DID HAVE SOME BRIEF EPSIODES OF APNEA WITH SLEEP, PLACED ON 2L VIA NC FOR SLEEP. PT UP TO BSC T/O SHIFT. NO ACUTE CHANGES T/O NIGHT. SHE DENIES ANY QUESTIONS OR CONCERNS AT THIS TIME. CALL LIGHT IN REACH. WILL MONITOR PT AND REPORT TO ONCOMING RN.
[2025-06-14 07:58] VITALS: BP 148/95
[2025-06-14 12:22] VITALS: BP 103/73
[2025-06-14 15:21] VITALS: BP 140/81
--- NOTE | 2025-06-14 15:42 | NUR ---
SHIFT SUMMARY/TRANSFER PATIENT IS ALERT, ORIENTED TO PERSON,PLACE, AND SITUATION, PATIENT IS CONFUSED REGARDING TIME. PATIENT IS PLEASANT AND COOPERATIVE. TELE IN PLACE, A FLUTTER IN 80'S-100'S, PATIENT DENIES PRESENCE OF CHEST PAIN OR PRESSURE. SPO2 >90% ON RA. PATIENT DENIES N/V/D. PATIENT WEARS DENTURES AT BASELINE, NOT PRESENT AT BEDSIDE. PATIENT IN CONTINENT OF URINE AND STOOL, ABLE TO CALL APPROPRIATELY. PATIENT IS A 1P ASSIST TO BSC. PATIENT LEFT UNIT AT 1525 VIA WHEELCHAIR TO MEDICAL FLOOR, REPORT GIVEN TO MED FLOOR RN. ALL PERSONAL BELONGINGS WITH PATIENT. VSS, PATIENT IN NO SIGNS OF DISTRESS.
[2025-06-14 15:47] VITALS: BP 138/97
--- NOTE | 2025-06-14 17:16 | NUR ---
LEWIS NOTE; PT FROM PCU RM 8 TO MED FLOOR RM 351 AT 1528. SKIN ASSESSMENT COMPLETED. PT DENIES NEEDS UPON ARRIVAL. BED IN LOW POSITION AND CALL LIGHT WITHIN REACH.
--- NOTE | 2025-06-14 17:21 | NUR ---
SHIFT SUMMARY; PT TO ROOM, TRANSFERED FROM PCU AT 1528. PT UP OUT OF BED WITH SBA AND FWW TO RESTROOM. PT HAS HAD LOOSE YELLOW, WATERY STOOLS X2. PT IS CURRENTLY WEARING BREIF PT IS CONTINANT/INCONTINANT. PT CURRENTLY ON TELE WITH AFLUTTER AT 115 BPM. CALL LIGHT WITHIN REACH AND BED IN LOW POSITION.
--- NOTE | 2025-06-14 18:28 | NUR ---
THIS SIGN WRITER HAND HAS REVIEWED AND AGREES WITH ALL NOTES AND ASSESSMENTS BY PRASHANTH VERGARA.
[2025-06-14] MEDS ORDERED: Lactobacil 2-S.Thermo-Bifido 1 1 Cap PO SCH (19:00)
[2025-06-14 19:42] VITALS: BP 151/97
[2025-06-14] MEDS ORDERED: NS 250 ML IV PRN (19:55)
[2025-06-14 23:26] VITALS: BP 137/99
[2025-06-15 04:12] VITALS: BP 135/78
--- NOTE | 2025-06-15 04:14 | NUR ---
SHIFT SUMMARY PT IS A&OX3-4, CONFUSION AT TIMES. PT IS PLEASANT AND COOPERATIVE WITH CARE. PT HAS HAD SEVERAL LOOSE STOOLS THIS SHIFT AND YELLOW IN COLOR. PT IS RECIEVING ROCEPHIN FOR UTI. PT IS ON A FULL LIQUID DIET, AMBULATING WITH FWW WITH SBA, PT WAS ABLE TO TAKE PILLS WHOLE WITH WATER. PT HAS A BLANCHABLE AREA ON HER COCCYX, ASSESSED AND NEW MEPILEX IN PLACE. PT SLEPT T/O SHIFT WITH EVEN AND UNLABORED RESPIRATIONS. CALL LIGHT WITHIN REACH.
[2025-06-15 07:21] VITALS: BP 134/75
[2025-06-15 07:30] LABS: BASOPHILS ABSOLUTE AUTO 0.04 K/mm3 (0.00-0.23); BASOPHILS PERCENT AUTO 1 % (0-2); EOSINOPHILS ABSOLUTE AUTO 0.30 K/mm3 (0.00-0.68); EOSINOPHILS PERCENT AUTO 3 % (0-6); Hematocrit 35.7 % (33.0-51.0); Hemoglobin 10.9 g/dL (11.5-16.0); IMMATURE GRAN ABSOLUTE AUTO 0.04 K/mm3 (0.00-0.10); IMMATURE GRAN PERCENT AUTO 1 % (0-1); LYMPHOCYTES ABSOLUTE AUTO 1.68 K/mm3 (0.84-5.20); LYMPHOCYTES PERCENT AUTO 19 % (21-46); MONOCYTES ABSOLUTE AUTO 0.77 K/mm3 (0.16-1.47); MONOCYTES PERCENT AUTO 9 % (4-13); Mean Corpuscular HGB Conc 30.5 g/dL (31.5-36.5); Mean Corpuscular Volume 83 fL (80-100); NEUTROPHILS ABSOLUTE AUTO 6.04 K/mm3 (1.96-9.15); NEUTROPHILS PERCENT AUTO 68 % (41-73); NRBC ABSOLUTE 0.00 K/mm3 (0.00-0.02); NRBC Auto 0.0 /100 WBC (0.0-0.2); Platelet Count 259 K/mm3 (150-400); RDW Coefficient Variation 17.4 % (11.7-14.2); RDW Standard Deviation 51.6 fL (35.1-46.3)
[2025-06-15 07:47] LABS: Anion Gap 5.0 mmol/L (3-11); Blood Urea Nitrogen 6.0 mg/dL (8-24); CO2, Blood 29.0 mmol/L (21-32); Calcium, Blood 8.1 mg/dL (8.5-10.1); Chloride, Blood 105.0 mmol/L (98-108); Creatinine, Blood 0.44 mg/dL (0.40-1.00); Glucose, Blood 94.0 mg/dL (70-99); Potassium, Blood 3.3 mmol/L (3.5-5.5); Sodium, Blood 136.0 mmol/L (136-145)
[2025-06-15 12:02] VITALS: BP 136/80
[2025-06-15] MEDS ORDERED: METO50 PO (12:33)
[2025-06-15] MEDS ORDERED: VISBIOME 112.51 EACH PO (12:34)
[2025-06-15] MEDS ORDERED: CIPR500 PO (12:34)
--- NOTE | 2025-06-15 15:28 | NUR ---
DISCHARGE/SHIFT SUMMARY; PT A/OX3, AMBULATES W/ WALKER SBA TO RESTROOM, AND PLEASANT. ROUNDING DOCTOR CAME BY ROOM TO ASK ABOUT UPDATES ON PT. PER DIGESTION OPERATOR AND INTO SHIFT DURING AM, PT'S LOOSE STOOLS HAVE BECOME LESS FREQUENT. PT MEDICATED PER EMAR. PT'S FAMILY AT BEDSIDE TO COME AND ROOM MANAGER PT AT 1410. PT AND FAMILY PROVIDED WITH CARE PACKET, EDUCATED ON MEDICATIONS, AND DISCHARGE INSTRUCTIONS. BOTH PT AND FAMILY VERBALIZED UNDERSTANDING. PT WHEELED OUT IN WHEELCHAIR. PT STABLE AT TIME OF DISCHARGE.
--- NOTE | 2025-06-15 15:42 | NUR ---
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
== END 2025-06-15 14:33 | disposition home health service (06) | DRG 871 ==
LOC: ER 16:43 → PCU 22:10 → MEDS 06-14 15:23 → ENPENDDIS 06-15 11:04 → MEDS 06-15 14:33
PROVIDERS: Emergency Medicine; ADMIT Internal Medicine
DX: A41.9 Sepsis, unspecified organism (principal); G92.8 Other toxic encephalopathy; N39.0 Urinary tract infection, site not specified; I48.92 Unspecified atrial flutter; J84.9 Interstitial pulmonary disease, unspecified; D84.9 Immunodeficiency, unspecified; K50.90 Crohn's disease, unspecified, without complications; R65.20 Severe sepsis without septic shock; M06.9 Rheumatoid arthritis, unspecified; E03.9 Hypothyroidism, unspecified; K57.30 Diverticulosis of large intestine without perforation or abscess without bleeding; I48.91 Unspecified atrial fibrillation; K21.9 Gastro-esophageal reflux disease without esophagitis; G89.29 Other chronic pain; K44.9 Diaphragmatic hernia without obstruction or gangrene; M81.0 Age-related osteoporosis without current pathological fracture; I07.1 Rheumatic tricuspid insufficiency; Z79.01 Long term (current) use of anticoagulants; Z79.890 Hormone replacement therapy; Z79.631 Long term (current) use of antimetabolite agent; Z90.49 Acquired absence of other specified parts of digestive tract
CPT/HCPCS: 36415; 70450; 71045; 80048; 80053; 81001; 83605; 83735; 83880; 84100; 84439; 84443; 84484; 85025; 87040; 87077; 87086; 87186; 87637; 93005; 93010; 93306; 96374; 97116; 97162; 97165; 97535; 99285-25; A9270; J0696; J1650; J1956; J2405; J3480; J7030; J7050; J7120; J8610

== ENCOUNTER 2025-07-23 13:03 | Day surgery (SDC) | payer MEDICARE, OTHER ==
[~2025-07-23] VITALS: Ht 152.4 cm; Wt 47.0 kg
[2025-07-23] VITALS (13 sets, daily range): BP systolic 116–171; BP diastolic 67–91
[~2025-07-23 13:03] MED LIST changes: +CIPR500 PO; +ELIQUIS2.5 MG PO; +EUTHYROX50 MCG PO; +Hair, Skin & N1 EACH PO; +METO50 PO; +NEBI5 PO; +VISBIOME 112.51 EACH PO
[2025-07-23] MEDS ORDERED: NS 1,000 ML IV ONE (13:34)
[2025-07-23] MEDS ORDERED: EUTHYROX125 MCG PO (13:44)
[2025-07-23] MEDS ORDERED: PREDNISOLO15 MG/5 ML SC (13:45)
[2025-07-23] MEDS ORDERED: POTCHL20ER PO (13:45)
[2025-07-23] MEDS ORDERED: LASIX40 MG PO (13:46)
[2025-07-23] MEDS ORDERED: PROLIA60 MG/1 ML SC (13:47)
[2025-07-23] MEDS ORDERED: CALCIUM MAGNES1 EACH PO (13:47)
[2025-07-23] MEDS ORDERED: ERGO400 PO (13:48)
--- NOTE | 2025-07-23 14:35 | NUR ---
PT DROWSY, BUT ANSWERING QUESTIONS APPROPRIATELY, DENIES PAIN, VSS, ON RA.
[2025-07-23] MEDS ORDERED: Propofol 10mg/ml 20 ml Vial (Procedural) IV ONE (14:38)
[2025-07-23] MEDS ORDERED: Lidocaine HCl 2% 20 MG/ML 5ML SYR IV ONE (14:38)
--- NOTE | 2025-07-23 14:51 | NUR ---
PT DRESSED SELF WITH MINIMAL ASSIST, IV REMOVED-CANNULA INTACT. PT AND DAUGHTER RECEIVED DISCHARGE INSTRUCTIONS, MED LIST AND AFTER CARE INSTRUCTIONS. PT LEFT FACILITY VIA W/C, CONDITION STABLE.
== END 2025-07-23 23:00 | disposition home or self-care (01) ==
LOC: MHTC 13:03
DX: I48.92 Unspecified atrial flutter (principal); M06.9 Rheumatoid arthritis, unspecified; K21.9 Gastro-esophageal reflux disease without esophagitis; E78.5 Hyperlipidemia, unspecified; I10 Essential (primary) hypertension; J44.9 Chronic obstructive pulmonary disease, unspecified; J84.10 Pulmonary fibrosis, unspecified; M81.0 Age-related osteoporosis without current pathological fracture; Z90.710 Acquired absence of both cervix and uterus; Z79.01 Long term (current) use of anticoagulants; Z79.890 Hormone replacement therapy; Z79.899 Other long term (current) drug therapy; Z88.0 Allergy status to penicillin; Z88.8 Allergy status to other drugs, medicaments and biological substances; Z88.2 Allergy status to sulfonamides
CPT/HCPCS: 92960; 93005; 93010; J2003; J2704; J7030

== ENCOUNTER 2025-07-27 19:24 | Emergency (ER) | payer MEDICARE, OTHER ==
[~2025-07-27] VITALS: Ht 152.4 cm; Wt 50.8 kg
[~2025-07-27 19:24] MED LIST changes: +CALCIUM MAGNES1 EACH PO; +ERGO400 PO; +LASIX40 MG PO; +POTCHL20ER PO; +PREDNISOLO15 MG/5 ML SC; +PROLIA60 MG/1 ML SC
[2025-07-27 19:53] LABS: BASOPHILS ABSOLUTE AUTO 0.07 K/mm3 (0.00-0.23); BASOPHILS PERCENT AUTO 1 % (0-2); EOSINOPHILS ABSOLUTE AUTO 0.17 K/mm3 (0.00-0.68); EOSINOPHILS PERCENT AUTO 2 % (0-6); Hematocrit 39.1 % (33.0-51.0); Hemoglobin 11.4 g/dL (11.5-16.0); IMMATURE GRAN ABSOLUTE AUTO 0.03 K/mm3 (0.00-0.10); IMMATURE GRAN PERCENT AUTO 0 % (0-1); LYMPHOCYTES ABSOLUTE AUTO 2.41 K/mm3 (0.84-5.20); LYMPHOCYTES PERCENT AUTO 25 % (21-46); MONOCYTES ABSOLUTE AUTO 0.80 K/mm3 (0.16-1.47); MONOCYTES PERCENT AUTO 8 % (4-13); Mean Corpuscular HGB Conc 29.2 g/dL (31.5-36.5); Mean Corpuscular Volume 83 fL (80-100); NEUTROPHILS ABSOLUTE AUTO 6.36 K/mm3 (1.96-9.15); NEUTROPHILS PERCENT AUTO 65 % (41-73); NRBC ABSOLUTE 0.00 K/mm3 (0.00-0.02); NRBC Auto 0.0 /100 WBC (0.0-0.2); Platelet Count 228 K/mm3 (150-400); RDW Coefficient Variation 18.7 % (11.7-14.2); RDW Standard Deviation 53.7 fL (35.1-46.3)
[2025-07-27 20:10] LABS: Anion Gap 8.0 mmol/L (3-11); Blood Urea Nitrogen 11.0 mg/dL (8-24); CO2, Blood 26.0 mmol/L (21-32); Calcium, Blood 8.7 mg/dL (8.5-10.1); Chloride, Blood 104.0 mmol/L (98-108); Creatinine, Blood 0.61 mg/dL (0.40-1.00); Glucose, Blood 104.0 mg/dL (70-99); Magnesium, Blood 2.4 mg/dL (1.6-2.4); Potassium, Blood 4.1 mmol/L (3.5-5.5); Sodium, Blood 134.0 mmol/L (136-145)
[2025-07-27 22:15] VITALS: BP 133/82
== END 2025-07-27 23:30 | disposition home or self-care (01) ==
LOC: ER 19:24
PROVIDERS: Emergency Medicine
DX: R07.2 Precordial pain (principal); Z88.8 Allergy status to other drugs, medicaments and biological substances; K21.9 Gastro-esophageal reflux disease without esophagitis; M19.90 Unspecified osteoarthritis, unspecified site
CPT/HCPCS: 71045; 80048; 83735; 83880; 84484; 85025; 93005; 93010; 99285-25

== ENCOUNTER → 2025-08-01 | Outpatient (CLI) | payer MEDICARE, OTHER ==
[2025-08-01 09:54] LABS: Source, Urine Voided
[2025-08-01 10:46] LABS: Bilirubin, Urine Neg (Neg); Color, Urine Yellow (P-Yellow); Glucose Qualitative, Urine Neg (Neg); Ketones, Urine Neg (Neg); Leukocyte Esterase, Urine 3+ (Neg); Protein, Urine 2+ (Neg); Specific Gravity, Urine 1.020 (1.003-1.022); Urobilinogen, Urine 1+ (Normal)
[2025-08-01 10:56] LABS: White Blood Cells, Urine TNTC /hpf (0-5)
[2025-08-01 10:58] LABS: Red Blood Cells, Urine 0-2 /hpf (0-2)
== END | disposition home or self-care (01) ==
LOC: LAB SHORT 09:53 → LAB 09:53 → LAB FUT 07-31 15:35
PROVIDERS: Internal Medicine
DX: N39.0 Urinary tract infection, site not specified (principal); B96.5 Pseudomonas (aeruginosa) (mallei) (pseudomallei) as the cause of diseases classified elsewhere; R41.82 Altered mental status, unspecified
CPT/HCPCS: 81001; 87077; 87086; 87186